=== PATIENT | female | born 1975 | race Caucasian/White ===

== ENCOUNTER 2024-07-21 11:09 | Emergency (ER) | payer MEDICAID, SELFPAY ==
[2024-07-21 11:14] VITALS: BP 133/71; PULSE 89; RESP 16; TEMP 36.4; O2SAT 98; BMI 33.3
--- NOTE | 2024-07-21 11:43 | W.ED.NECK ---
HPI - Neck Pain/Injury General: Chief Complaint: Neck Pain/Injury Stated Complaint: pain in neck Time Seen by Provider: 07/21/24 11:27 History of Present Illness: 48-year-old female presents emergency room complaining of neck pain that began yesterday worse after she sneezed today. She does not have any significant radicular pain she has little numbness in her right hand but states that is chronic and has not sick definitely changed after the sneezing episode yesterday. No difficulty with walking or balance. She does have a mild headache. Related Data Previous Rx's ?Medication ?Instructions ?Recorded diclofenac sodium 75 mg 75 mg PO Q12H PRN pain #20 tabs 07/21/24 tablet,delayed release hydrocodone 5 mg-acetaminophen 325 1 tab PO Q6H PRN pain #20 tabs 07/21/24 mg tablet prednisone 20 mg tablet 20 mg PO TID #15 tabs 07/21/24 tizanidine 4 mg tablet 4 mg PO Q6H PRN muscle spasticity 07/21/24 #20 tabs Allergies Allergy/AdvReac Type Severity Reaction Status Date / Time codeine Allergy ADR-Gastrointestinal Verified 07/21/24 11:22 Upset gabapentin Allergy ADR-Gastrointestinal Verified 07/21/24 11:22 Upset Sulfa (Sulfonamide Allergy ALGY-Anaphy Verified 07/21/24 11:22 Antibiotics) laxis Review of Systems Const: Denies: fever(s) or chills Card: Denies: chest pain Resp: Denies: dyspnea GI: Denies: abdominal pain : Denies: dysuria, urinary frequency or urinary urgency Musc: Reports: neck pain; Denies: back pain Skin/Breast: Denies: rash Physical Exam Const: COMMON NORMALS: no acute distress GENERAL APPEARANCE: cooperative and comfortable ORIENTATION/CONSCIOUSNESS: Yes awake, Yes oriented to person, Yes oriented to place and Yes oriented to time HENMT: COMMON NORMALS: normocephalic, atraumatic and hearing grossly normal bilaterally HEAD & SCALP: normocephalic and atraumatic Resp: COMMON NORMALS: normal respiratory effort, No retractions, No use of accessory muscles and clear to auscultation bilaterally AUSCULTATION: clear to auscultation bilaterally Cardio: COMMON NORMALS: regular rate, regular rhythm and No murmurs present (Cardio) RATE: regular rate RHYTHM: regular rhythm GI: COMMON NORMALS: Soft to palpation and No hepatosplenomegaly present AUSCULTATION: Yes normoactive bowel sounds PALPATION: Yes Soft to palpation, No Tenderness to palpation present (GI), No Guarding due to palpation present (GI) and Yes No hepatosplenomegaly present Extremity: COMMON NORMALS: normal to inspection, capillary refill normal, no clubbing, cyanosis or edema, no calf tenderness and no pedal edema Neuro: SENSORIUM/ORIENTATION: Yes oriented to person, Yes oriented to place and Yes oriented to time OTHER: Sensation the upper extremities are normal. Floor Cashier strength equal bilaterally neurovascularly intact Skin: COMMON NORMALS: no rashes or lesions noted GENERAL SKIN EXAM: no rashes or lesions noted Course Vital Signs: Vital signs: Vital Signs Temperature 97.6 F 07/21/24 11:14 Pulse Rate 75 07/21/24 12:04 Respiratory Rate 16 07/21/24 11:14 Blood Pressure 144/83 07/21/24 12:04 Pulse Oximetry 100 07/21/24 12:04 Oxygen Delivery Me thod Room Air 07/21/24 12:04 MDM - Neck Pain/Injury Medical Decision Making Patient reports sneezing and now having increased radicular arm pain on the right she has had it before functionally she is still intact she also has a Chiari malformation. Initially gave steroids muscle relaxer narcotics she reported mild relief but not full relief we subsequently gave her offered more pain medication she refused. She was wanting to have imaging done discussed with her that his CT would not be very helpful for other Chiari malformation or for evaluating her cervical spine. In the treatment goal to still be the same control of discomfort. She declines any further narcotic discharged home with tizanidine to take in place of methocarbamol use diclofenac and hydrocodone as needed start steroid taper tomorrow will refer to Dr. Olvera for her Chiari malformation and to Dr. Cifuentes for her complaints of neck pain with cervical radiculopathy Medical Records I reviewed the patient's medical records. Lab Data I reviewed the patient's lab results. No radiology studies performed this visit Discharge Plan Discharge Patient Disposition: Home Clinical Impression: Cervical radiculopathy, Chiari malformation Condition: Stable Prescriptions: New tizanidine 4 mg tablet 4 mg PO Q6H PRN (Reason: muscle spasticity) Qty: 20 0RF Rx Instructions: do not exceed 3 doses per 24 hrs hydrocodone-acetaminophen 5-325 mg tablet 1 tab PO Q6H PRN (Reason: pain) Qty: 20 0RF prednisone 20 mg tablet 20 mg PO TID Qty: 15 0RF Rx Instructions: 1 p.o. 3 times daily x3 days, 1 p.o. twice daily x2 days, 1 p.o. daily x2 days diclofenac sodium 75 mg tablet,delayed release (DR/EC) 75 mg PO Q12H PRN (Reason: pain) Qty: 20 0RF Discharge Orders: Discharge ED (Routine); Ordered 07/21/24 Ordered By: Paul Aguero Referrals: Pasquale Cifuentes DO [Physician] - Jacob Olvera MD [Physician] - Discharge Diet: Usual diet Discharge Activity: Increase activity as tolerated Patient Instructions: Opioid Safety, Pain Management Activity Restrictions/Additional Instructions: Thank you for choosing [facility] for your healthcare needs today. It is very important that you follow up as instructed or that you return to the Emergency Department should you have concerns or if your condition changes or worsens in any way. You were seen in the emergency room today for neck pain with some right radicular arm pain. You reported your history of Chiari malformation. In the emergency room we treated your immediate symptoms. Recommend that you follow-up with Dr. Cifuentes's orthopedic spine surgeon to further evaluate your neck for possible advanced imaging and treatment options. Case management make arrangements for this. Also recommend you establish with a neurologist case management will assist you with this as well. Use the medications given today to help control your symptoms until you are seen by the above physicians. Print Language: Macedonian Coding Level of Care Code ED Roll Forming Machine Operator for Candice Meyers
[2024-07-21] MEDS: orphenadrine 30 mg/mL Inj 2 mL 60 MG IM (11:56)
[2024-07-21] MEDS: ketorolac 30 mg/mL INJ IVP (11:57)
[2024-07-21] MEDS: dexamethasone 10 mg/mL INJ IM (12:00)
[2024-07-21] MEDS: morphine 4 mg/mL SDV 1 mL IVP (12:00)
[2024-07-21 12:04] VITALS: BP 144/83; PULSE 75; O2SAT 100
[2024-07-21 14:54] VITALS: BP 133/85; PULSE 73; O2SAT 97
== END 2024-07-21 14:57 | disposition home or self-care (01) ==
PROVIDERS: Emergency Provider Family Medicine
DX: M54.12 Radiculopathy, cervical region (principal); G93.5 Compression of brain
CPT/HCPCS: 36415; 96374; 96375; 99284; J1100; J1885; J2270; J2360

== ENCOUNTER 2024-07-26 07:37 | Emergency (ER) | payer MEDICAID, SELFPAY ==
[2024-07-26 07:40] VITALS: BP 138/73; PULSE 86; RESP 16; TEMP 36.9; O2SAT 96; BMI 33.3
--- NOTE | 2024-07-26 08:05 | W.ED.ABDPA2 ---
Documented by User: Paul Aguero DO 07/27/24 13:17 HPI - Abdominal Pain General: Chief Complaint: Abdominal Pain Stated Complaint: nausea, diarrhea, abd pain Time Seen by Provider: 07/26/24 07:58 History of Present Illness: 48-year-old female who presents emergency room with nausea vomiting diarrhea with abdominal pain. She is significant loss of appetite. Denies any medic easy melena hematemesis cough cramps no dysuria urgency or frequency no hematuria. She relates having had several abdominal surgeries including colostomy large and small bowel resections. Several gynecological surgery she states she has had breast cancer and cervical cancer. She states she has had several C-sections and subsequent hysterectomy. She also reported to us earlier that she had a Chiari malformation. She was seen 5 days ago at that time she had cervical radiculopathy she was referred sent out for a MRI and follow-up with neurosurgery. She had told the PA student today that she was supposed to have a PET scan yesterday but that was canceled because the machine was not working correctly. Associated Symptoms: Reports diarrhea, melena, nausea and vomiting; Denies chills, dysuria, fever(s) and hematemesis Related Data Previous Rx's ?Medication ?Instructions ?Recorded diclofenac sodium 75 mg 75 mg PO Q12H PRN pain #20 tabs 07/21/24 tablet,delayed release hydrocodone 5 mg-acetaminophen 325 1 tab PO Q6H PRN pain #20 tabs 07/21/24 mg tablet prednisone 20 mg tablet 20 mg PO TID #15 tabs 07/21/24 tizanidine 4 mg tablet 4 mg PO Q6H PRN muscle spasticity 07/21/24 #20 tabs hydrocodone 5 mg-acetaminophen 325 1 tab PO Q6H PRN pain #14 tabs 07/26/24 mg tablet Allergies Allergy/AdvReac Type Severity Reaction Status Date / Time codeine Allergy ADR-Gastrointestinal Verified 07/21/24 11:22 Upset gabapentin Allergy ADR-Gastrointestinal Verified 07/21/24 11:22 Upset Sulfa (Sulfonamide Allergy ALGY-Anaphy Verified 07/21/24 11:22 Antibiotics) laxis Review of Systems Const: Denies: fever(s) or chills Card: Denies: chest pain Resp: Denies: dyspnea GI: Reports: abdominal pain, nausea, vomiting, diarrhea and melena; Denies: hematemesis : Denies: dysuria, urinary frequency or urinary urgency Musc: Denies: neck pain or back pain Skin/Breast: Denies: rash PFSH ED PFSH: Medical History Cervical radiculopathy Chiari malformation Physical Exam Const: COMMON NORMALS: no acute distress GENERAL APPEARANCE: cooperative and comfortable ORIENTATION/CONSCIOUSNESS: Yes awake, Yes oriented to person, Yes oriented to place and Yes oriented to time HENMT: COMMON NORMALS: normocephalic, atraumatic and hearing grossly normal bilaterally HEAD & SCALP: normocephalic and atraumatic Resp: COMMON NORMALS: normal respiratory effort, No retractions, No use of accessory muscles and clear to auscultation bilaterally AUSCULTATION: clear to auscultation bilaterally Cardio: COMMON NORMALS: regular rate, regular rhythm and No murmurs present (Cardio) RATE: regular rate RHYTHM: regular rhythm GI: COMMON NORMALS: No hepatosplenomegaly present AUSCULTATION: Yes normoactive bowel sounds PALPATION: Yes Tenderness to palpation present (GI) (Lower abdomen), No Guarding due to palpation present (GI) and Yes No hepatosplenomegaly present Extremity: COMMON NORMALS: normal to inspection, capillary refill normal, no clubbing, cyanosis or edema, no calf tenderness and no pedal edema Neuro: SENSORIUM/ORIENTATION: Yes oriented to person, Yes oriented to place and Yes oriented to time Skin: COMMON NORMALS: no rashes or lesions noted GENERAL SKIN EXAM: no rashes or lesions noted Course Vital Signs: Vital signs: Vital Signs Temperature 98.5 F 07/26/24 07:40 Pulse Rate 76 07/26/24 12:14 Respiratory Rate 16 07/26/24 07:40 Blood Pressure 162/93 07/26/24 12:14 Pulse Oximetry 97 07/26/24 12:14 Oxygen Delivery Me thod Room Air 07/26/24 07:40 MDM - Abdominal Pain Medical Decision Making I was called to another emergency in the hospital. Care signed out to Dr. Schmitt at change of shift. See final notes for diagnosis and disposition.. Patient presents here with abdominal pain her CT showed some inflammation but no signs of obstruction she has no signs of acute infection blood work here is normal we will get her follow-up with surgery likely needs a EGD and colonoscopy. Lab Data 07/26/24 08:02 07/26/24 08:02 Labs/Radiology: Radiology Impressions Abdomen/Pelvis CT 07/26/24 08:13 IMPRESSION: 1. Mild terminal ileum enhancement with wall thickening with a few additional areas of small bowel which are small caliber. There is no obstruction at this time. May represent changes of Crohn's disease. 2. Mild diverticulosis. There is mild wall thickening of the sigmoid but no acute diverticulitis at this time. 3. No renal obstruction. 4. Hepatic steatosis. 5. Prior cholecystectomy. Laboratory Results WBC 8.16 10^3/uL (3.29-11.43) 07/26/24 08:02 RBC 3.98 10^6/uL (3.85-5.65) 07/26/24 08:02 Hgb 12.20 g/dL (11.27-16.99) 07/26/24 08:02 Hct 37.3 % (36-47) 07/26/24 08:02 MCV 93.7 fl (85-98) 07/26/24 08:02 MCH 30.7 pg (27-33) 07/26/24 08:02 MCHC 32.7 g/dL (30-55) 07/26/24 08:02 RDW 13.2 % (12.1-15.1) 07/26/24 08:02 Plt Count 326 10^3/cmm (157-399) 07/26/24 08:02 MPV 10.6 fL (7.4-10.4) H 07/26/24 08:02 Neut % (Auto) 64.1 % 07/26/24 08:02 Lymph % (Auto) 29.4 % 07/26/24 08:02 Smyth % (Auto) 4.8 % 07/26/24 08:02 Eos % (Auto) 0.7 % 07/26/24 08:02 Baso % (Auto) 0.4 % 07/26/24 08:02 Neut # (Auto) 5.23 10^3/uL (1.8-7.7) 07/26/24 08:02 Lymph # (Auto) 2.4 10^3/uL (0.8-4.8) 07/26/24 08:02 Smyth # (Auto) 0.4 10^3/uL (0.2-0.9) 07/26/24 08:02 Eos # (Auto) 0.1 10^3/uL (0.0-0.8) 07/26/24 08:02 Baso # (Auto) 0.0 10^3/uL (0.0-0.1) 07/26/24 08:02 Nucleated RBC % (auto) 0 % 07/26/24 08:02 Nucleated RBCs # 0.0 /100WBC 07/26/24 08:02 Sodium 137 mmol/L (136-145) 07/26/24 08:02 Sodium Cancelled 07/26/24 08:02 Potassium 4.4 mmol/L (3.5-5.1) 07/26/24 08:02 Potassium Cancelled 07/26/24 08:02 Chloride 102 mmol/L (98-107) 07/26/24 08:02 Chloride Cancelled 07/26/24 08:02 Carbon Dioxide 27 mmol/L (22-29) 07/26/24 08:02 Carbon Dioxide Cancelled 07/26/24 08:02 Anion Gap 12.4 (5-19) 07/26/24 08:02 Anion Gap Cancelled 07/26/24 08:02 BUN 18 mg/dL (6-20) 07/26/24 08:02 BUN Cancelled 07/26/24 08:02 Creatinine 0.5 mg/dL (0.5-0.9) 07/26/24 08:02 Creatinine Cancelled 07/26/24 08:02 GFR Calculation 132.8 mL/min (90-130) H 07/26/24 08:02 GFR Calculation Cancelled 07/26/24 08:02 Glucose 102 mg/dL (65-115) 07/26/24 08:02 Glucose Cancelled 07/26/24 08:02 Calculated Osmolality 286 mOsm/kg (285-295) 07/26/24 08:02 Calculated Osmolality Cancelled 07/26/24 08:02 Calcium 9.1 mg/dL (8.5-10.5) 07/26/24 08:02 Calcium Cancelled 07/26/24 08:02 Total Bilirubin 0.2 mg/dL (0.15-1.2) 07/26/24 08:02 AST 20 U/L (0-32) 07/26/24 08:02 ALT 35 U/L (0-33) H 07/26/24 08:02 Alkaline Phosphatase 80 U/L (35-105) 07/26/24 08:02 Total Protein 7.0 g/dL (6.6-8.7) 07/26/24 08:02 Albumin 4.5 g/dL (3.5-5.2) 07/26/24 08:02 Globulin 2.5 g/dL (1.3-4.6) 07/26/24 08:02 Lipase 30 U/L (13-60) 07/26/24 08:02 Urine Color Yellow (Yellow) 07/26/24 10:58 Urine Appearance Clear (CLEAR) 07/26/24 10:58 Urine pH 6.5 (5-7) 07/26/24 10:58 Ur Specific [employer] 1.066 (1.005-1.030) H 07/26/24 10:58 Urine Protein Negative (Negative) 07/26/24 10:58 Urine Glucose (UA) Negative (Normal) 07/26/24 10:58 Urine Ketones Negative (Negative) 07/26/24 10:58 Urine Blood Negative (Negative) 07/26/24 10:58 Urine Nitrate Negative (Negative) 07/26/24 10:58 Urine Bilirubin Negative (Negative) 07/26/24 10:58 Urine Urobilinogen 0.2 mg/dL (Negative) 07/26/24 10:58 Ur Leukocyte Esterase Negative (Negative) 07/26/24 10:58 Amorphous Sediment Not Reportable 07/26/24 10:58 Influenza A (PCR) Negative (Negative) 07/26/24 08:49 Influenza Type B (PCR) Negative (Negative) 07/26/24 08:49 RSV (PCR) Negative (Negative) 07/26/24 08:49 SARS-CoV-2 (PCR) Negative (Negative) 07/26/24 08:49 Discharge Plan Discharge Patient Disposition: Home Clinical Impression: Abdominal pain Condition: Stable Prescriptions: New hydrocodone-acetaminophen 5-325 mg tablet 1 tab PO Q6H PRN (Reason: pain) Qty: 14 0RF No Action tizanidine 4 mg tablet 4 mg PO Q6H PRN (Reason: muscle spasticity) Qty: 20 0RF Rx Instructions: do not exceed 3 doses per 24 hrs hydrocodone-acetaminophen 5-325 mg tablet 1 tab PO Q6H PRN (Reason: pain) Qty: 20 0RF prednisone 20 mg tablet 20 mg PO TID Qty: 15 0RF Rx Instructions: 1 p.o. 3 times daily x3 days, 1 p.o. twice daily x2 days, 1 p.o. daily x2 days diclofenac sodium 75 mg tablet,delayed release (DR/EC) 75 mg PO Q12H PRN (Reason: pain) Qty: 20 0RF Discharge Orders: Discharge ED (Routine); Ordered 07/26/24 Ordered By: Kiara Schmitt Referrals: Kali Austin MD [Physician] - 4-7 days Discharge Diet: Advance as tolerated Discharge Activity: Resume usual activity Patient Instructions: Abdominal Pain (ED), Opioid Safety Print Language: Bots[place]an Coding Level of Care Code ED Day Care Home Mother for Chg Fwd Documented by User: Kiara Schmitt MD 07/26/24 12:20 HPI - Abdominal Pain General: Chief Complaint: Abdominal Pain Stated Complaint: nausea, diarrhea, abd pain Time Seen by Provider: 07/26/24 07:58 Related Data Previous Rx's ?Medication ?Instructions ?Recorded diclofenac sodium 75 mg 75 mg PO Q12H PRN pain #20 tabs 07/21/24 tablet,delayed release hydrocodone 5 mg-acetaminophen 325 1 tab PO Q6H PRN pain #20 tabs 07/21/24 mg tablet prednisone 20 mg tablet 20 mg PO TID #15 tabs 07/21/24 tizanidine 4 mg tablet 4 mg PO Q6H PRN muscle spasticity 07/21/24 #20 tabs hydrocodone 5 mg-acetaminophen 325 1 tab PO Q6H PRN pain #14 tabs 07/26/24 mg tablet Allergies Allergy/AdvReac Type Severity Reaction Status Date / Time codeine Allergy ADR-Gastrointestinal Verified 07/21/24 11:22 Upset gabapentin Allergy ADR-Gastrointestinal Verified 07/21/24 11:22 Upset Sulfa (Sulfonamide Allergy ALGY-Anaphy Verified 07/21/24 11:22 Antibiotics) laxis PFSH ED PFSH: Medical History Cervical radiculopathy Chiari malformation Course Vital Signs: Vital signs: Vital Signs Temperature 98.5 F 07/26/24 07:40 Pulse Rate 76 07/26/24 12:14 Respiratory Rate 16 07/26/24 07:40 Blood Pressure 162/93 07/26/24 12:14 Pulse Oximetry 97 07/26/24 12:14 Oxygen Delivery Me thod Room Air 07/26/24 07:40 MDM - Abdominal Pain Medical Decision Making Patient presents here with abdominal pain her CT showed some inflammation but no signs of obstruction she has no signs of acute infection blood work here is normal we will get her follow-up with surgery likely needs a EGD and colonoscopy. Medical Records I reviewed the patient's medical records. Lab Data I reviewed the patient's lab results. 07/26/24 08:02 07/26/24 08:02 Labs/Radiology: Radiology Impressions Abdomen/Pelvis CT 07/26/24 08:13 IMPRESSION: 1. Mild terminal ileum enhancement with wall thickening with a few additional areas of small bowel which are small caliber. There is no obstruction at this time. May represent changes of Crohn's disease. 2. Mild diverticulosis. There is mild wall thickening of the sigmoid but no acute diverticulitis at this time. 3. No renal obstruction. 4. Hepatic steatosis. 5. Prior cholecystectomy. Laboratory Results WBC 8.16 10^3/uL (3.29-11.43) 07/26/24 08:02 RBC 3.98 10^6/uL (3.85-5.65) 07/26/24 08:02 Hgb 12.20 g/dL (11.27-16.99) 07/26/24 08:02 Hct 37.3 % (36-47) 07/26/24 08:02 MCV 93.7 fl (85-98) 07/26/24 08:02 MCH 30.7 pg (27-33) 07/26/24 08:02 MCHC 32.7 g/dL (30-55) 07/26/24 08:02 RDW 13.2 % (12.1-15.1) 07/26/24 08:02 Plt Count 326 10^3/cmm (157-399) 07/26/24 08:02 MPV 10.6 fL (7.4-10.4) H 07/26/24 08:02 Neut % (Auto) 64.1 % 07/26/24 08:02 Lymph % (Auto) 29.4 % 07/26/24 08:02 Smyth % (Auto) 4.8 % 07/26/24 08:02 Eos % (Auto) 0.7 % 07/26/24 08:02 Baso % (Auto) 0.4 % 07/26/24 08:02 Neut # (Auto) 5.23 10^3/uL (1.8-7.7) 07/26/24 08:02 Lymph # (Auto) 2.4 10^3/uL (0.8-4.8) 07/26/24 08:02 Smyth # (Auto) 0.4 10^3/uL (0.2-0.9) 07/26/24 08:02 Eos # (Auto) 0.1 10^3/uL (0.0-0.8) 07/26/24 08:02 Baso # (Auto) 0.0 10^3/uL (0.0-0.1) 07/26/24 08:02 Nucleated RBC % (auto) 0 % 07/26/24 08:02 Nucleated RBCs # 0.0 /100WBC 07/26/24 08:02 Sodium 137 mmol/L (136-145) 07/26/24 08:02 Sodium Cancelled 07/26/24 08:02 Potassium 4.4 mmol/L (3.5-5.1) 07/26/24 08:02 Potassium Cancelled 07/26/24 08:02 Chloride 102 mmol/L (98-107) 07/26/24 08:02 Chloride Cancelled 07/26/24 08:02 Carbon Dioxide 27 mmol/L (22-29) 07/26/24 08:02 Carbon Dioxide Cancelled 07/26/24 08:02 Anion Gap 12.4 (5-19) 07/26/24 08:02 Anion Gap Cancelled 07/26/24 08:02 BUN 18 mg/dL (6-20) 07/26/24 08:02 BUN Cancelled 07/26/24 08:02 Creatinine 0.5 mg/dL (0.5-0.9) 07/26/24 08:02 Creatinine Cancelled 07/26/24 08:02 GFR Calculation 132.8 mL/min (90-130) H 07/26/24 08:02 GFR Calculation Cancelled 07/26/24 08:02 Glucose 102 mg/dL (65-115) 07/26/24 08:02 Glucose Cancelled 07/26/24 08:02 Calculated Osmolality 286 mOsm/kg (285-295) 07/26/24 08:02 Calculated Osmolality Cancelled 07/26/24 08:02 Calcium 9.1 mg/dL (8.5-10.5) 07/26/24 08:02 Calcium Cancelled 07/26/24 08:02 Total Bilirubin 0.2 mg/dL (0.15-1.2) 07/26/24 08:02 AST 20 U/L (0-32) 07/26/24 08:02 ALT 35 U/L (0-33) H 07/26/24 08:02 Alkaline Phosphatase 80 U/L (35-105) 07/26/24 08:02 Total Protein 7.0 g/dL (6.6-8.7) 07/26/24 08:02 Albumin 4.5 g/dL (3.5-5.2) 07/26/24 08:02 Globulin 2.5 g/dL (1.3-4.6) 07/26/24 08:02 Lipase 30 U/L (13-60) 07/26/24 08:02 Urine Color Yellow (Yellow) 07/26/24 10:58 Urine Appearance Clear (CLEAR) 07/26/24 10:58 Urine pH 6.5 (5-7) 07/26/24 10:58 Ur Specific [employer] 1.066 (1.005-1.030) H 07/26/24 10:58 Urine Protein Negative (Negative) 07/26/24 10:58 Urine Glucose (UA) Negative (Normal) 07/26/24 10:58 Urine Ketones Negative (Negative) 07/26/24 10:58 Urine Blood Negative (Negative) 07/26/24 10:58 Urine Nitrate Negative (Negative) 07/26/24 10:58 Urine Bilirubin Negative (Negative) 07/26/24 10:58 Urine Urobilinogen 0.2 mg/dL (Negative) 07/26/24 10:58 Ur Leukocyte Esterase Negative (Negative) 07/26/24 10:58 Amorphous Sediment Not Reportable 07/26/24 10:58 Influenza A (PCR) Negative (Negative) 07/26/24 08:49 Influenza Type B (PCR) Negative (Negative) 07/26/24 08:49 RSV (PCR) Negative (Negative) 07/26/24 08:49 SARS-CoV-2 (PCR) Negative (Negative) 07/26/24 08:49 All radiology interpretation(s) finalized by discharge Discharge Plan Discharge Patient Disposition: Home Clinical Impression: Abdominal pain Condition: Stable Prescriptions: New hydrocodone-acetaminophen 5-325 mg tablet 1 tab PO Q6H PRN (Reason: pain) Qty: 14 0RF No Action tizanidine 4 mg tablet 4 mg PO Q6H PRN (Reason: muscle spasticity) Qty: 20 0RF Rx Instructions: do not exceed 3 doses per 24 hrs hydrocodone-acetaminophen 5-325 mg tablet 1 tab PO Q6H PRN (Reason: pain) Qty: 20 0RF prednisone 20 mg tablet 20 mg PO TID Qty: 15 0RF Rx Instructions: 1 p.o. 3 times daily x3 days, 1 p.o. twice daily x2 days, 1 p.o. daily x2 days diclofenac sodium 75 mg tablet,delayed release (DR/EC) 75 mg PO Q12H PRN (Reason: pain) Qty: 20 0RF Discharge Orders: Discharge ED (Routine); Ordered 07/26/24 Ordered By: Kiara Schmitt Referrals: Kali Austin MD [Physician] - 4-7 days Discharge Diet: Advance as tolerated Discharge Activity: Resume usual activity Patient Instructions: Abdominal Pain (ED), Opioid Safety Print Language: [place]an Coding Level of Care Code ED Day Care Home Mother for Candice Meyers
[2024-07-26 08:11] LABS: Basophils % 0.4 %; Eosinophils # 0.1 10^3/uL (0.0-0.8); Eosinophils % 0.7 %; Hematocrit 37.3 % (36-47); Lymphocytes # 2.4 10^3/uL (0.8-4.8); Lymphocytes % 29.4 %; Mean Corpuscular HGB Conc 32.7 g/dL (30-55); Mean Corpuscular Hemoglobin 30.7 pg (27-33); Mean Corpuscular Volume 93.7 fl (85-98); Mean Platelet Volume 10.6 fL (7.4-10.4); Monocytes # 0.4 10^3/uL (0.2-0.9); Monocytes % 4.8 %; Neutrophils # 5.23 10^3/uL (1.8-7.7); Neutrophils % 64.1 %; Nucleated Red Blood Cells % 0 %; Platelet Count 326 10^3/cmm (157-399); Red Blood Count 3.98 10^6/uL (3.85-5.65); Red Cell Distribution Width 13.2 % (12.1-15.1); White Blood Count 8.16 10^3/uL (3.29-11.43)
--- NOTE | 2024-07-26 08:13 | CT_ITS ---
WS: [id number] CT ABDOMEN AND PELVIS WITH CONTRAST HISTORY: abd pain, nausea and vomiting. History of cervical and breast cancer as per the patient. TECHNIQUE: Imaging performed of the abdomen and pelvis with IV contrast. Single phase imaging of the abdomen. Coronal and sagittal reformats are submitted. All CT scans at [facility] use at least one of these dose optimization techniques: automated exposure control; mA and/or kV adjustment per patient size (includes targeted exams where dose is matched to clinical indication); or iterative reconstruction. IV CONTRAST: Omnipaque 350; 100 mL IV. Oral contrast: No DLP: 709.81 mGy.cm COMPARISON: None available. Lower thorax: Lung bases are clear. Heart is normal size. Small hiatal hernia. Liver/biliary system: Mild hepatomegaly. Heterogeneity throughout the liver but no discrete mass. Portal vein is normal. Gallbladder: Status post cholecystectomy. Pancreas: Normal size pancreas and pancreatic duct. No adjacent inflammation. Spleen: Normal size spleen. No mass or infarct. Adrenal glands: Normal. Right kidney: Normal. Left kidney: Normal. Aorta: Mild atherosclerosis with no aneurysm. Lymphadenopathy: None. Free fluid: None. GI tract: No GI tract obstruction. Nondistended stomach. No small bowel obstruction. Normal appendix. There is mild enhancement of wall thickening at the terminal ileum but no obstruction. There are additional loops of small bowel in the LEFT lower quadrant which are collapsed. There are a few scattered diverticula in the descending colon without acute diverticulitis. Abdominal wall: Unremarkable abdominal wall. No hernia. Pelvis: Status post hysterectomy. No adnexal mass or free fluid. Bones: Unremarkable. CT/CT abdomen pelvis w con* [id number] IMPRESSION: 1. Mild terminal ileum enhancement with wall thickening with a few additional areas of small bowel which are small caliber. There is no obstruction at this t [place]. May represent changes of Crohn's disease. 2. Mild diverticulosis. There is mild wall thickening of the sigmoid but no ac bibi diverticulitis at this time. 3. No renal obstruction. 4. Hepatic steatosis. 5. Prior cholecystectomy.
[2024-07-26 08:34] LABS: Anion Gap 12.4 (5-19); Blood Urea Nitrogen 18 mg/dL (6-20); Calcium 9.1 mg/dL (8.5-10.5); Carbon Dioxide 27 mmol/L (22-29); Chloride 102 mmol/L (98-107); Creatinine Clr Calc Pharmacy 166.1099; Glomerular Filtration Rate 132.8 mL/min (90-130); Glucose 102 mg/dL (65-115); Osmolality Calculated 286 mOsm/kg (285-295); Potassium 4.4 mmol/L (3.5-5.1); Sodium 137 mmol/L (136-145)
[2024-07-26 08:41] LABS: Alanine Aminotransferase 35 U/L (0-33); Albumin Level 4.5 g/dL (3.5-5.2); Alkaline Phosphatase 80 U/L (35-105); Aspartate Amino Transferase 20 U/L (0-32); Globulin 2.5 g/dL (1.3-4.6); Lipase 30 U/L (13-60); Total Bilirubin 0.2 mg/dL (0.15-1.2)
[2024-07-26] MEDS: iohexol 350 mg/mL 500 mL Btl (per mL) IV (08:55)
[2024-07-26] MEDS: ondansetron 2 mg/ML SDV 2 mL 4 MG IVP (09:20)
[2024-07-26 09:45] LABS: Influenza A NEGATIVE (Negative); Influenza B NEGATIVE (Negative); Respiratory Syncytial Virus Ce NEGATIVE (Negative); SARS-CoV-2 PCR NEGATIVE (Negative)
[2024-07-26 11:11] LABS: Add Urine Microscopic? NO
[2024-07-26 11:12] LABS: Bilirubin Urine Negative (Negative); Blood Urine Negative (Negative); Glucose Urine UA Negative (Normal); Ketones Urine Negative (Negative); Leukocyte Esterase Urine Negative (Negative); Nitrate Urine Negative (Negative); Protein Urine Negative (Negative); Urine Appearance Clear (CLEAR); Urine Color Yellow (Yellow); Urobilinogen Urine 0.2 mg/dL (Negative); pH Urine 6.5 (5-7)
--- NOTE | 2024-07-26 11:22 | PC.NURSE ---
this nurse took pt report at this time from May SMITH.
[2024-07-26 11:33] LABS: Specific Gravity, Urine 1.066 (1.005-1.030)
[2024-07-26 11:34] LABS: Charge for UA Resulting for Rev
--- NOTE | 2024-07-26 12:11 | PC.NURSE ---
PATIENT UPSET WITH DISCHARGE INSTRUCTIONS. PATIENT STATES SHE WAS UNHAPPY DUE TO 1ST PROVIDER TELLING HER SHE HAD ALL OF THESE THINGS WRONG WITH ME AND THEN THE SECOND DOC JUST COMES IN AND SAYS I'M DISCHARGED. PATIENT STATES SHE WAS TOLD THAT SHE DOESN'T FOLLOW HER GLUTEN FREE DIET. NURSE EXPLAINED THAT PATIENT HAS STOMACH PAINS DUE TO NOT FOLLOWING PROPER DIET AND THAT SHE SHOULD CONTINUE TO EAT CLEAR LIQUID FOODS FOR THE NEXT 24-48 HOURS AND THEN START ON A GLUTEN FREE DIET. NURSE APOLOGIZES AND STATES NOT MUCH IS DONE FOR STOMACH PAINS WHEN IT IS RELATED TO POOR DIET. PATIENT WAS ALSO SENT HOME WITH PAIN MEDICATIONS. PATIENT IS THANKFUL FOR FURTHER NURSE EXPLANATION. PATIENT STATES DR BARBOSA IS RODOLFOE REFERRING TO DR ERVIN. PATIENT SIGNED DISCHARGED PAPERWORK AND AMBULATED TO EXIT IN STABLE CONDITION.
[2024-07-26 12:14] VITALS: BP 162/93; PULSE 76; O2SAT 97
--- NOTE | 2024-07-26 12:21 | DCPLANNER ---
messaged gen surg for abd pain
== END 2024-07-26 12:15 | disposition home or self-care (01) ==
PROVIDERS: Family Medicine; Emergency Provider Emergency Medicine
DX: R10.9 Unspecified abdominal pain (principal); Z11.52 Encounter for screening for COVID-19
CPT/HCPCS: 36415; 74177; 76705; 80053; 81003; 83690; 85025; 87637; 96374; 99285; J2405

== ENCOUNTER 2024-09-16 21:04 | Emergency (ER) | payer MEDICAID, SELFPAY ==
[2024-09-16 21:21] VITALS: BP 139/82; PULSE 97; RESP 14; TEMP 36.7; O2SAT 98
[2024-09-16 21:30] VITALS: BP 126/91; PULSE 91; PULSE 95; O2SAT 95; O2SAT 98
[2024-09-16 22:00] VITALS: BP 134/75; PULSE 88; O2SAT 96
--- NOTE | 2024-09-16 22:16 | XRR_ITS ---
PROCEDURE INFORMATION: Exam: XR Chest Exam date and time: 09/16/2024 11:08 PM Age: 48 years old Clinical indication: Shortness of breath; SOB; Persistent cough; Current lung/throat CA TECHNIQUE: Imaging protocol: Radiologic exam of the chest. Views: 1 view. COMPARISON: CT abdomen pelvis w con* [id number] 07/26/2024 8:51 AM FINDINGS: Lungs: Unremarkable. No consolidation. Pleural spaces: Unremarkable. No pleural effusion. No pneumothorax. Heart/Mediastinum: Unremarkable. No cardiomegaly. Bones/joints: Unremarkable. XR/XR chest 1V portable [id number] IMPRESSION: No acute findings.
[2024-09-16 22:30] VITALS: BP 150/92; PULSE 84; O2SAT 100
[2024-09-16 23:00] VITALS: BP 119/78; PULSE 82; O2SAT 98
[2024-09-16 23:04] LABS: Basophils % 0.4 %; Eosinophils # 0.1 10^3/uL (0.0-0.8); Eosinophils % 0.9 %; Hematocrit 37.9 % (36-47); Lymphocytes # 1.5 10^3/uL (0.8-4.8); Lymphocytes % 18.6 %; Mean Corpuscular HGB Conc 32.5 g/dL (30-55); Mean Corpuscular Hemoglobin 31.1 pg (27-33); Mean Corpuscular Volume 95.9 fl (85-98); Mean Platelet Volume 10.8 fL (7.4-10.4); Monocytes # 0.6 10^3/uL (0.2-0.9); Monocytes % 6.8 %; Neutrophils # 5.86 10^3/uL (1.8-7.7); Neutrophils % 72.9 %; Nucleated Red Blood Cells % 0 %; Platelet Count 288 10^3/cmm (157-399); Red Blood Count 3.95 10^6/uL (3.85-5.65); Red Cell Distribution Width 12.6 % (12.1-15.1); White Blood Count 8.03 10^3/uL (3.29-11.43)
[2024-09-16 23:28] LABS: D Dimer <= 0.27 ug/mLFEU (0-0.59)
[2024-09-16 23:32] LABS: Influenza A NEGATIVE (Negative); Influenza B NEGATIVE (Negative); Respiratory Syncytial Virus Ce NEGATIVE (Negative); SARS-CoV-2 PCR NEGATIVE (Negative)
[2024-09-16 23:39] LABS: Alanine Aminotransferase 29 U/L (0-33); Albumin Level 4.6 g/dL (3.5-5.2); Alkaline Phosphatase 94 U/L (35-105); Anion Gap 14.1 (5-19); Aspartate Amino Transferase 19 U/L (0-32); Blood Urea Nitrogen 20 mg/dL (6-20); Calcium 9.4 mg/dL (8.5-10.5); Carbon Dioxide 28 mmol/L (22-29); Chloride 102 mmol/L (98-107); Creatinine Clr Calc Pharmacy 107.8634; Globulin 2.7 g/dL (1.3-4.6); Glomerular Filtration Rate 90.1 mL/min (90-130); Glucose 125 mg/dL (65-115); NT Pro B Type Natriuretic Pept < 36 pg/mL (0-125); Osmolality Calculated 294 mOsm/kg (285-295); Potassium 4.1 mmol/L (3.5-5.1); Sodium 140 mmol/L (136-145); Total Bilirubin 0.2 mg/dL (0.15-1.2); Total Protein 7.3 g/dL (6.6-8.7)
--- NOTE | 2024-09-17 00:01 | ED_ITS ---
HPI - SOB/Dyspnea 2 General: Chief Complaint: Shortness of Breath/Dyspnea Stated Complaint: weakness nonstop cough Time Seen by Provider: 09/16/24 21:32 History of Present Illness: HPI Narrative: 48-year-old female who says that she has been recently diagnosed with throat and lung cancer. She shows me a PET scan results showing inflammation and/or infection at the base of her tongue as well as a spiculated mass or upper lobe of the lung. She states that she has had an ongoing nagging cough for several days. She has had a tickle in the back of her throat causing her to cough constantly. She is lost her voice today because the cough has been so great. She is coughed up clots twice in the last week, the last time being today. Clots were small amount. She is not running fever. Related Data Previous Rx's ?Medication ?Instructions ?Recorded diclofenac sodium 75 mg 75 mg PO Q12H PRN pain #20 t abs 07/21/24 tablet,delayed release hydrocodone 5 mg-acetaminophen 325 1 tab PO Q6H PRN pa in #20 tabs 07/21/24 mg tablet prednisone 20 mg tablet 20 mg PO TID #15 tabs tizanidine 4 mg tablet 4 mg PO Q6H PRN muscle spast icity 07/21/24 #20 tabs hydrocodone 5 mg-acetaminophen 325 1 tab PO Q6H PRN pa in #14 tabs 07/26/24 mg tablet Allergies Allergy/AdvReac Type Severity Reaction Status Date / Time codeine Allergy ADR-Gastrointestinal Verified 09/16/24 21:27 Upset gabapentin Allergy ADR-Gastrointestinal Verified 09/16/24 21:27 Upset Sulfa (Sulfonamide Allergy ALGY-Anaphy Verified 09/16/24 21:27 Antibiotics) laxis PFSH ED 2 PFSH: Medical History Cervical radiculopathy Chiari malformation Physical Exam 2 Const: COMMON NORMALS: no acute distress GENERAL APPEARANCE: cooperative and anxious; not ill appearing and not frail appearing HENMT: COMMON NORMALS: normocephalic, atraumatic and Normal external nose present HEAD & SCALP: normocephalic and atraumatic FACE & SINUS: normal facial exam and face symmetric NOSE: Normal external nose present Eye: COMMON NORMALS: Equal, round and reactive pupils present and EOMs intact bilaterally PUPIL: Yes Equal, round and reactive pupils present Neck/C-Spine: GENERAL: Yes trachea midline Chest: CHEST: Yes Symmetrical chest wall rise Resp: COMMON NORMALS: normal respiratory effort, No retractions, No use of accessory muscles and clear to auscultation bilaterally AUSCULTATION: clear to auscultation bilaterally Cardio: COMMON NORMALS: regular rate and regular rhythm RATE: regular rate RHYTHM: regular rhythm GI: COMMON NORMALS: Normal to inspection, nondistended, normoactive bowel sounds present Extremity: COMMON NORMALS: no pedal edema Neuro: JAYDA COMA SCALE: document GCS findings Jayda coma scale eye opening: Spontaneous [place] coma scale verbal response: Orientated [place] coma scale motor response: Obey commands Jayda coma scale total score: 15 S ENSORY EXAM: Yes extremities (intact) Psych: COMMON NORMALS: speech normal SPEECH: Yes normal speech Skin: COMMON NORMALS: no rashes or lesions noted GENERAL SKIN EXAM: no rashes or lesions noted Course 2 Vital Signs: Vital signs: Vital Signs Temperature 98.1 F 09/16/24 21:21 Pulse Rate 82 09/17/24 02:36 Respiratory Rate 14 09/16/24 21:21 Blood Pressure 124/81 09/17/24 02:36 Pulse Oximetry 96 09/17/24 02:36 Oxygen Delivery Me thod Room Air 09/16/24 23:00 MDM - SOB/Dyspnea Medical Decision Making Chest x-ray is nonacute. Blood work is essentially not remarkable. Patient believe the cough is coming from the tickle in the back of her throat. She was given viscous lidocaine with oral Benadryl liquid here which seemed to help transiently. She is also given IV dexamethasone which did help here. She will be discharged on Magic mouthwash to swish and swallow for soothing of the throat. She will call her doctor later today for follow-up appointment. Lab Data 09/16/24 22:40 09/16/24 22:40 Labs/Radiology: Radiology Impressions Chest X-Ray 09/16/24 22:16 IMPRESSION: No acute findings. Laboratory Results WBC 8.03 10^3/uL (3.29-11.43) 09/16/24 22:40 RBC 3.95 10^6/uL (3.85-5.65) 09/16/24 22:40 Hgb 12.30 g/dL (11.27-16.99) 09/16/24 22:40 Hct 37.9 % (36-47) 09/16/24 22:40 MCV 95.9 fl (85-98) 09/16/24 22:40 MCH 31.1 pg (27-33) 09/16/24 22: MCHC 32.5 g/dL (30-55) 09/16/24 22:40 RDW 12.6 % (12.1-15.1) 09/16/24 22:40 Plt Count 288 10^3/cmm (157-399) 09/16/24 22:40 MPV 10.8 fL (7.4-10.4) H 09/16/24 22:40 Neut % (Auto) 72.9 % 09/16/24: Lymph % (Auto) 18.6 % 09/16/24 22:40 [place] % (Auto) 6.8 % 09/16/24:40 Eos % (Auto) 0.9 % 09/16/24 22:40 Baso % (Auto) 0.4 % 09/16/24:40 Neut # (Auto) 5.86 10^3/uL (1.8-7.7) 09/16/24: Lymph # (Auto) 1.5 10^3/uL (0.8-4.8) 09/16/24 22:40 [place] # (Auto) 0.6 10^3/uL (0.2-0.9) 09/16/24: Eos # (Auto) 0.1 10^3/uL (0.0-0.8) 09/16/24: Baso # (Auto) 0.0 10^3/uL (0.0-0.1) 09/16/24: Nucleated RBC % (auto) 0 % 09/16/24: Nucleated RBCs # 0.0 /100WBC 09/16/24 22:40 D-Dimer <= 0.27 ug/mLFEU (0-0.59) 09/16/24 22:40 Sodium 140 mmol/L (136-145) 09/16/24: Potassium 4.1 mmol/L (3.5-5.1) 09/16/24 22:40 Chloride 102 mmol/L (98-107) 09/16/24 22:40 Carbon Dioxide 28 mmol/L (22-29) 09/16/24 22:40 Anion Gap 14.1 (5-19) 09/16/24 22:40 BUN 20 mg/dL (6-20) 09/16/24 22:40 Creatinine 0.7 mg/dL (0.5-0.9) 09/16/24 22:40 GFR Calculation 90.1 mL/min (90-130) 09/16/24 22:40 Glucose 125 mg/dL (65-115) H 09/16/24 22:40 Calculated Osmolality 294 mOsm/kg (285-295) 09/16/24 22:40 Lactic Acid 1.0 mmol/L (0.5-2.2) 09/16/24 22:40 Calcium 9.4 mg/dL (8.5-10.5) 09/16/24 22:40 Total Bilirubin 0.2 mg/dL (0.15-1.2) 09/16/24 22:40 AST 19 U/L (0-32) 09/16/24 22:40 ALT 29 U/L (0-33) 09/16/24 22:40 Alkaline Phosphatase 94 U/L (35-105) 09/16/24 22:40 NT-Pro-B Natriuret Pep < 36 pg/mL (0-125) 09/16/24 22:40 Total Protein 7.3 g/dL (6.6-8.7) 09/16/24 22:40 Albumin 4.6 g/dL (3.5-5.2) 09/16/24 22:40 Globulin 2.7 g/dL (1.3-4.6) 09/16/24 22:40 Influenza A (PCR) Negative (Negative) 09/16/24 22:49 Influenza Type B (PCR) Negative (Negative) 09/16/24 22:49 RSV (PCR) Negative (Negative) 09/16/24 22:49 SARS-CoV-2 (PCR) Negative (Negative) 09/16/24 22:49 All radiology interpretation(s) finalized by discharge Discharge Plan Discharge Patient Disposition: Home Clinical Impression: Acute tracheitis with laryngitis Condition: Stable Prescriptions: No Action hydrocodone-acetaminophen 5-325 mg tablet 1 tab PO Q6H PRN (Reason: pain) Qty: 14 0RF tizanidine 4 mg tablet 4 mg PO Q6H PRN (Reason: muscle spasticity) Qty: 20 0RF Rx Instructions: do not exceed 3 doses per 24 hrs hydrocodone-acetaminophen 5-325 mg tablet 1 tab PO Q6H PRN (Reason: pain) Qty: 20 0RF prednisone 20 mg tablet 20 mg PO TID Qty: 15 0RF Rx Instructions: 1 p.o. 3 times daily x3 days, 1 p.o. twice daily x2 days, 1 p.o. daily x2 days diclofenac sodium 75 mg tablet,delayed release (DR/EC) 75 mg PO Q12H PRN (Reason: pain) Qty: 20 0RF Discharge Orders: Discharge ED (Routine); Ordered 09/17/24 Ordered By: Fredrick Servin Patient Instructions: Acute Laryngitis - Adult, Opioid Safety, Pain Management Activity Restrictions/Additional Instructions: Fill the prescription for Magic mouthwash at your pharmacy. Take as directed. It can help with throat and airway irritation related to your problem. Call your doctor tomorrow for follow-up appointment. Return for any problems. Print Language: Amharic Coding Level of Care Code ED Record Center Coordinator for Candice Meyers
[2024-09-17] MEDS: diphenhydrAMINE 12.5 mg/5 mL UDC 10 mL 25 MG PO ×2 (00:40→01:51)
[2024-09-17] MEDS: lidocaine 2% viscous 15 mL UDC 5 ML MUCOUS MEM (00:40)
[2024-09-17] MEDS: dexamethasone 10 mg/mL INJ IVP (00:41)
[2024-09-17] MEDS: HYDROcodone-APAP 7.5-325 mg/15 mL UDC 10 ML PO (01:51)
[2024-09-17] MEDS: lidocaine 2% viscous 15 mL UDC 5 ML TOPICAL (01:51)
[2024-09-17 02:36] VITALS: BP 124/81; PULSE 82; O2SAT 96
--- NOTE | 2024-09-17 12:05 | DCPLANNER ---
patient called and asked about magic mouthwash prescription. I asked Dr. Aguero, it's something that has to be handwritten and Sirisha noticed it by the charge seat. I let her know we had it and why it was hand written, not sent electronic but she said 'that's fucking stupid' and hung up the phone
== END 2024-09-17 01:50 | disposition home or self-care (01) ==
PROVIDERS: Emergency Provider Emergency Medicine
DX: J04.2 Acute laryngotracheitis (principal); Z11.52 Encounter for screening for COVID-19
CPT/HCPCS: 36415; 71045; 80053; 83605; 83880; 85025; 85378; 87637; 96374; 99284; J1100; J9999

== ENCOUNTER 2024-10-31 11:31 | Outpatient (CLI) | payer MEDICAID, SELFPAY ==
--- NOTE | 2024-10-31 11:38 | MR_ITS ---
WS: [id number] MRI HEAD WITHOUT CONTRAST TECHNIQUE: Sagittal T1, T2 axial, T2 axial FLAIR, axial and coronal T1 images, axial susceptibility weighted imaging, axial diffusion weighted images, and coronal T2 images were obtained. CLINICAL INFORMATION: ARNOLD-CHIARI MALFORMATION COMPARISON: None. FINDINGS: No evidence of restricted diffusion to suggest acute ischemia. Chiari I malformation with cerebellar tonsils approximately 4.4 mm below the foramen magnum. No hydrocephalus. Normal fourth ventricle. No suspicious intracranial signal abnormalities. Normal okeefe-white differentiation. Normal vascular flow voids at the skull base. No extra-axial fluid collections. No evidence of mass or mass effect. Paranasal sinuses and mastoid air cells are well aerated. Normal posterior nasopharynx. Normal optic chiasm and pituitary infundibulum. MR/MR head wo con* [id number] IMPRESSION: 1. Chiari I malformation with cerebellar tonsils approximately 4.4 mm below th e foramen magnum. 2. No hydrocephalus. 3. No suspicious intracranial signal abnormalities. 4. No other acute findings.
--- NOTE | 2024-10-31 11:47 | MR_ITS ---
WS: [id number] MRI CERVICAL SPINE NONCONTRAST TECHNIQUE: Sagittal T1, T2 and STIR imaging. Axial T2, gradient, and fiesta imaging. CLINICAL INFORMATION: neck pain COMPARISON: None. FINDINGS: Straightening of the normal cervical lordosis. Disc osteophyte protrusions C4-C5 and C5-C6 with mild central canal stenosis worse at C5-6. C2-C3: Normal. C3-C4: Mild disc bulging. Moderate RIGHT facet arthropathy. Mild to moderate RIGHT foraminal narrowing. C4-C5: Disc osteophyte complex with endplate ridging. Moderate facet arthropathy. Mild bilateral bony foraminal narrowing. C5-C6: Disc osteophyte protrusion with slight indentation cervical cord. Mild central canal stenosis. Moderate to severe bilateral bony foraminal narrowing. Uncovertebral joint hypertrophy. C6-C7: Spinal canal and foramen are patent. C7-T1: Spinal canal and foramen are patent. Visualized brain stem structures: Normal. Prevertebral soft tissues: Normal. Chiari malformation partially visualized. MR/MR cervical spin wo con* [id number] IMPRESSION: 1. Straightening of the normal cervical lordosis. 2. Mild central canal stenosis C4-C5 and C5-C6 with disc osteophyte complexes worse at C5-C6 with slight indentation cervical cord. 3. Moderate to severe bilateral C5-C6 bony foraminal narrowing. 4. No syrinx in the cervical cord. 5. Moderate RIGHT C3-4 facet arthropathy.
== END 2024-10-31 11:32 | disposition home or self-care (01) ==
LOC: RAD 11:33
PROVIDERS: PCP Family Medicine; Visit Provider Registered Nurse Critical Care Medicine
DX: Q07.00 Arnold-Chiari syndrome without spina bifida or hydrocephalus (principal); M48.02 Spinal stenosis, cervical region; M47.812 Spondylosis without myelopathy or radiculopathy, cervical region; M25.78 Osteophyte, vertebrae
CPT/HCPCS: 70551; 72141

== ENCOUNTER 2024-11-07 07:47 | Day surgery (SDC) | payer MEDICAID, SELFPAY ==
[2024-11-07] VITALS (16 sets, daily range): BP systolic 104–134; BP diastolic 61–82; PULSE 68–85; RESP 10–20; TEMP 36.2–36.7; O2SAT 90–99; BMI 30.2
--- NOTE | 2024-11-07 08:18 | W.ED.ABDPA2 ---
HPI - Abdominal Pain General: Chief Complaint: Abdominal Pain Stated Complaint: nausea,bloating, no bowel movement in 3 days, weak Time Seen by Provider: 11/07/24 08:09 History of Present Illness: Patient is a 49-year-old female who presents to the ED today with chief complaint of right lower quadrant abdominal pain. She states the pain started 2 days ago and is accompanied by nausea vomiting, and decreased appetite. Patient's PCP prescribed her Zofran, and she states this did not help her pain. She has not had a bowel movement in 2 days. She also states her urine is cloudy, she is having increased frequency, and feeling like she is not fully emptying her bladder. She denies fever, hematuria, dysuria, increased burping, hematemesis, and is still passing gas. She has a history of celiac's disease and admits to not adhering to a gluten-free diet currently. Previous abdominal surgery includes C-sections and cholecystectomy. Last meal prior to midnight last night Associated Symptoms: Reports constipation, nausea and vomiting; Denies bloating, chills, coffee ground emesis, diarrhea, dysuria, fever(s), hematochezia, hematemesis and melena Related Data Home Medications ?Medication ?Instructions ?Recorded ?Confirmed buspirone 15 mg tablet 15 mg PO TID 11/07/24 11/07/24 duloxetine 30 mg capsule,delayed See Rx Instructions .Route .COMPLEX 11/07/24 11/07/24 release methocarbamol 500 mg tablet 500 mg PO DAILY 11/07/24 11/07/24 omeprazole 40 mg capsule,delayed 40 mg PO DAILY 11/07/24 11/07/24 release ondansetron 4 mg disintegrating 4 mg PO Q8H PRN Nausea 11/07/24 11/07/24 tablet sumatriptan succinate 25 mg tablet 25 mg PO Q2H PRN Migraine Headache 11/07/24 11/07/24 topiramate 50 mg tablet 50 mg PO BID 11/07/24 11/07/24 Previous Rx's ?Medication ?Instructions ?Recorded tizanidine 4 mg tablet 4 mg PO Q6H PRN muscle spasticity 07/21/24 #20 tabs hydrocodone 5 mg-acetaminophen 325 1 tab PO Q6H PRN pain #14 tabs 07/26/24 mg tablet Allergies Allergy/AdvReac Type Severity Reaction Status Date / Time codeine Allergy ADR-Gastrointestinal Verified 09/16/24 21:27 Upset gabapentin Allergy ADR-Gastrointestinal Verified 09/16/24 21:27 Upset Sulfa (Sulfonamide Allergy ALGY-Anaphy Verified 09/16/24 21:27 Antibiotics) laxis Review of Systems Const: Reports: change in appetite and fatigue; Denies: fever(s), chills or body aches ENMT: Denies: throat pain, ear or mastoid pain, nasal discharge or nasal congestion Card: Denies: chest pain, edema, dyspnea on exertion or orthopnea Resp: Denies: dyspnea, productive cough or non-productive cough GI: Reports: abdominal pain (Right lower quadrant), nausea, vomiting and constipation; Denies: hematemesis, coffee ground emesis, diarrhea, bloating, hematochezia or melena : Reports: difficulty voiding, urinary frequency and urinary hesitancy; Denies: flank pain, dysuria or urinary urgency Skin/Breast: Denies: rash or pruritus PFSH ED PFSH: Medical History (Updated 11/07/24 @ 10:46 by Paul Aguero DO) Cervical radiculopathy Chiari malformation Surgical History (Updated 11/07/24 @ 10:46 by Paul Aguero DO) Hx of cholecystectomy Physical Exam Const: COMMON NORMALS: no acute distress and alert GENERAL APPEARANCE: cooperative and comfortable ORIENTATION/CONSCIOUSNESS: Yes awake, Yes oriented to person, Yes oriented to place and Yes oriented to time HENMT: COMMON NORMALS: normocephalic, atraumatic and hearing grossly normal bilaterally HEAD & SCALP: normocephalic and atraumatic Resp: COMMON NORMALS: normal respiratory effort, No retractions, No use of accessory muscles and clear to auscultation bilaterally AUSCULTATION: clear to auscultation bilaterally Cardio: COMMON NORMALS: regular rate, regular rhythm and No murmurs present (Cardio) RATE: regular rate RHYTHM: regular rhythm GI: COMMON NORMALS: Soft to palpation, No hepatosplenomegaly present and no masses INSPECTION: Yes normal to inspection AUSCULTATION: Yes normoactive bowel sounds PALPATION: Yes Soft to palpation, Yes Tenderness to palpation present (GI) Details: LLQ and RLQ, No Guarding due to palpation present (GI) and Yes No hepatosplenomegaly present Extremity: COMMON NORMALS: normal to inspection, capillary refill normal, no clubbing, cyanosis or edema, no calf tenderness and no pedal edema Neuro: SENSORIUM/ORIENTATION: Yes alert, Yes oriented to person, Yes oriented to place and Yes oriented to time Skin: COMMON NORMALS: no rashes or lesions noted GENERAL SKIN EXAM: no rashes or lesions noted Course Vital Signs: Vital signs: Vital Signs Temperature 98.0 F 11/07/24 07:56 Pulse Rate 78 11/07/24 09:30 Respiratory Rate 16 11/07/24 07:56 Blood Pressure 134/70 11/07/24 09:30 Pulse Oximetry 98 11/07/24 09:30 Oxygen Delivery Me thod Room Air 11/07/24 07:56 MDM - Abdominal Pain Medical Decision Making Early acute appendicitis. Dr. Austin was consulted he recommends appendectomy. Patient placed on observation with pain and nausea medications also give dose of Zosyn. Lab Data 11/07/24 08:15 11/07/24 08:15 Labs/Radiology: Radiology Impressions Abdomen/Pelvis CT 11/07/24 08:40 IMPRESSION: 1. Prominent tortuous appendix with enhancement and slight induration measuring 7-8 mm in transverse dimension distally. Although not definitive, recommend correlation for early or mild appendicitis. 2. A few prominent lymph nodes in the RIGHT lower quadrant can be seen with mesenteric adenitis. 3. Fatty liver. 4. Prior cholecystectomy. 5. Prior hysterectomy. 6. No other acute findings. Notified Paul Aguero DO at 11/07/2024 9:41 AM. Laboratory Results WBC 6.91 10^3/uL (3.29-11.43) 11/07/24 08:15 RBC 4.13 10^6/uL (3.85-5.65) 11/07/24 08:15 Hgb 12.70 g/dL (11.27-16.99) 11/07/24 08:15 Hct 37.1 % (36-47) 11/07/24 08:15 MCV 89.8 fl (85-98) 11/07/24 08:15 MCH 30.8 pg (27-33) 11/07/24 08:15 MCHC 34.2 g/dL (30-55) 11/07/24 08:15 RDW 12.6 % (12.1-15.1) 11/07/24 08:15 Plt Count 332 10^3/cmm (157-399) 11/07/24 08:15 MPV 10.7 fL (7.4-10.4) H 11/07/24 08:15 Neut % (Auto) 59.1 % 11/07/24 08:15 Lymph % (Auto) 34.0 % 11/07/24 08:15 [place] % (Auto) 5.2 % 11/07/24 08:15 Eos % (Auto) 1.0 % 11/07/24 08:15 Baso % (Auto) 0.4 % 11/07/24 08:15 Neut # (Auto) 4.08 10^3/uL (1.8-7.7) 11/07/24 08:15 Lymph # (Auto) 2.4 10^3/uL (0.8-4.8) 11/07/24 08:15 [place] # (Auto) 0.4 10^3/uL (0.2-0.9) 11/07/24 08:15 Eos # (Auto) 0.1 10^3/uL (0.0-0.8) 11/07/24 08:15 Baso # (Auto) 0.0 10^3/uL (0.0-0.1) 11/07/24 08:15 Nucleated RBC % (auto) 0 % 11/07/24 08:15 Nucleated RBCs # 0.0 /100WBC 11/07/24 08:15 Sodium 137 mmol/L (136-145) 11/07/24 08:15 Potassium 3.9 mmol/L (3.5-5.1) 11/07/24 08:15 Chloride 100 mmol/L (98-107) 11/07/24 08:15 Carbon Dioxide 25 mmol/L (22-29) 11/07/24 08:15 Anion Gap 15.9 (5-19) 11/07/24 08:15 BUN 19 mg/dL (6-20) 11/07/24 08:15 Creatinine 0.6 mg/dL (0.5-0.9) 11/07/24 08:15 GFR Calculation 107.2 mL/min (90-130) 11/07/24 08:15 Glucose 116 mg/dL (65-115) H 11/07/24 08:15 Calculated Osmolality 287 mOsm/kg (285-295) 11/07/24 08:15 Calcium 9.8 mg/dL (8.5-10.5) 11/07/24 08:15 Total Bilirubin 0.3 mg/dL (0.15-1.2) 11/07/24 08:15 AST 16 U/L (0-32) 11/07/24 08:15 ALT 20 U/L (0-33) 11/07/24 08:15 Alkaline Phosphatase 96 U/L (35-105) 11/07/24 08:15 Total Protein 7.7 g/dL (6.6-8.7) 11/07/24 08:15 Albumin 4.7 g/dL (3.5-5.2) 11/07/24 08:15 Globulin 3.0 g/dL (1.3-4.6) 11/07/24 08:15 Lipase 38 U/L (13-60) 11/07/24 08:15 Urine Color Yellow (Yellow) 11/07/24 09:19 Urine Appearance Cloudy (CLEAR) A 11/07/24 09:19 Urine pH 7.5 (5-7) 11/07/24 09:19 Ur Specific [place] 1.030 (1.005-1.030) 11/07/24 09:19 Urine Protein Negative (Negative) 11/07/24 09:19 Urine Glucose (UA) Negative (Normal) 11/07/24 09:19 Urine Ketones Negative (Negative) 11/07/24 09:19 Urine Blood Negative (Negative) 11/07/24 09:19 Urine Nitrate Negative (Negative) 11/07/24 09:19 Urine Bilirubin Negative (Negative) 11/07/24 09:19 Urine Urobilinogen 0.2 mg/dL (Negative) 11/07/24 09:19 Ur Leukocyte Esterase Negative (Negative) 11/07/24 09:19 Urine RBC 0-2 /hpf (0-2) 11/07/24 09:19 Urine WBC 0-5 /hpf (0-5) 11/07/24 09:19 Ur Squamous Epith Cells 6-10 /hpf (0-5) 11/07/24 09:19 Amorphous Sediment Not Reportable 11/07/24 09:19 Urine Bacteria Trace /hpf (NONE) 11/07/24 09:19 Hyaline Casts 1.65 /lpf 11/07/24 09:19 All radiology interpretation(s) finalized by discharge Discharge Plan Discharge Patient Disposition: Admitted As Inpatient Clinical Impression: Acute appendicitis, Hx of cholecystectomy Condition: Stable Coding Level of Care Code ED Refrigeration Lead for Candice Meyers
[2024-11-07 08:37] LABS: Basophils % 0.4 %; Eosinophils # 0.1 10^3/uL (0.0-0.8); Hematocrit 37.1 % (36-47); Lymphocytes # 2.4 10^3/uL (0.8-4.8); Mean Corpuscular HGB Conc 34.2 g/dL (30-55); Mean Corpuscular Hemoglobin 30.8 pg (27-33); Mean Corpuscular Volume 89.8 fl (85-98); Mean Platelet Volume 10.7 fL (7.4-10.4); Monocytes # 0.4 10^3/uL (0.2-0.9); Monocytes % 5.2 %; Neutrophils # 4.08 10^3/uL (1.8-7.7); Neutrophils % 59.1 %; Nucleated Red Blood Cells % 0 %; Platelet Count 332 10^3/cmm (157-399); Red Blood Count 4.13 10^6/uL (3.85-5.65); Red Cell Distribution Width 12.6 % (12.1-15.1); White Blood Count 6.91 10^3/uL (3.29-11.43)
--- NOTE | 2024-11-07 08:40 | CT_ITS ---
WS: [id number] CT ABDOMEN PELVIS TECHNIQUE: Contrast-enhanced CT of the abdomen and pelvis with coronal and sagittal reformatted images. CLINICAL INFORMATION: abd pain COMPARISON: CT 07/26/2024 DLP: 510.[address] scans at [facility] use at least one of these dose optimization techniques: automated exposure control; mA and/or kV adjustment per patient size (includes targeted exams where dose is matched to clinical indication); or iterative reconstruction. FINDINGS: Fatty liver. Prior cholecystectomy. Prior hysterectomy lung bases are well aerated. Normal portal vein and splenic vein. Normal GE junction. Adrenal glands are normal. Normal renal parenchymal enhancement. No hydronephrosis. Normal caliber abdominal aorta. Normal sigmoid colon. No evidence of small or large bowel obstruction. Slightly prominent enhancing tortuous appendix measuring 7 to 8 mm in transverse dimension distally. Slight trace of induration in this area with a few prominent lymph nodes which also can be seen with adenitis. Recommend correlation for early or mild appendicitis. Appendix was previously normal in appearance and air-filled. CT/CT abdomen pelvis w con* [id number] IMPRESSION: 1. Prominent tortuous appendix with enhancement and slight induration measurin g 7-8 mm in transverse dimension distally. Although not definitive, recommend c orrelation for early or mild appendicitis. 2. A few prominent lymph nodes in the RIGHT lower quadrant can be seen with me senteric adenitis. 3. Fatty liver. 4. Prior cholecystectomy. 5. Prior hysterectomy. 6. No other acute findings. Notified Paul Aguero DO at 11/07/2024 9:41 AM.
[2024-11-07 08:47] LABS: Alanine Aminotransferase 20 U/L (0-33); Albumin Level 4.7 g/dL (3.5-5.2); Alkaline Phosphatase 96 U/L (35-105); Anion Gap 15.9 (5-19); Aspartate Amino Transferase 16 U/L (0-32); Blood Urea Nitrogen 19 mg/dL (6-20); Calcium 9.8 mg/dL (8.5-10.5); Carbon Dioxide 25 mmol/L (22-29); Chloride 100 mmol/L (98-107); Creatinine Clr Calc Pharmacy 124.5019; Glomerular Filtration Rate 107.2 mL/min (90-130); Glucose 116 mg/dL (65-115); Lipase 38 U/L (13-60); Osmolality Calculated 287 mOsm/kg (285-295); Potassium 3.9 mmol/L (3.5-5.1); Sodium 137 mmol/L (136-145); Total Bilirubin 0.3 mg/dL (0.15-1.2); Total Protein 7.7 g/dL (6.6-8.7)
[2024-11-07 09:37] LABS: Bilirubin Urine Negative (Negative); Blood Urine Negative (Negative); Glucose Urine UA Negative (Normal); Ketones Urine Negative (Negative); Leukocyte Esterase Urine Negative (Negative); Nitrate Urine Negative (Negative); Protein Urine Negative (Negative); Urine Appearance Cloudy (CLEAR); Urine Color Yellow (Yellow); Urobilinogen Urine 0.2 mg/dL (Negative); pH Urine 7.5 (5-7)
[2024-11-07 09:39] LABS: Add Urine Microscopic? YES; Bacteria Urine Trace /hpf; Hyaline Casts Urine 1.65 /lpf; RBC Urine 0-2 /hpf (0-2); WBC Urine 0-5 /hpf (0-5)
[2024-11-07] MEDS: ondansetron 2 mg/ML SDV 2 mL 4 MG IVP ×3 (09:55→14:39)
[2024-11-07] MEDS: sodium chloride 0.9% 1,000 ML 999 ML IV (09:56)
[2024-11-07] MEDS: ketorolac 30 mg/mL INJ IVP (10:00)
[2024-11-07] MEDS: piperacillin-tazobactam 3.375 GM in sodium chloride 0.9% (plus) 50 ML IV (10:04)
--- NOTE | 2024-11-07 10:40 | P.HP_ITS ---
Providers/Chief Complaint 2 Primary Care Provider: Tova Charles DO Chief Complaint: nausea,bloating, no bowel movement in 3 days, weak History of Present Illness Tara Goins is a 49 year old female who presented to the hospital with right lower quadrant abdominal pain. Patient states that she has been feeling abdominal pain in the right lower quadrant for 2 days the pain is quite sharp associated with diarrhea. No fever or chills. Has had similar pain in the past but last CT scan few months ago it was unremarkable. CT scan done today show evidence of possible mild acute appendicitis with some dilation of the appendix and some notes in the right lower quadrant. Review of Systems 2 General: Reports: 10 or more systems reviewed and unremarkable except in HPI and below Medications/Allergies Home Medications ?Medication ?Instructions ?Recorded ?Confirmed ?Last Taken ?Type tizanidine 4 mg tablet 4 mg PO Q6H PRN muscle spast icity 07/21/24 11/07/24 Unknown Rx #20 tabs hydrocodone 5 mg-acetaminophen 325 1 tab PO Q6H PRN pa in #14 tabs 07/26/24 11/07/24 Unknown Rx mg tablet buspirone 15 mg tablet 15 mg PO TID 11/07/2411/07/24 History duloxetine 30 mg capsule,delayed See Rx Instructions . Route .COMPLEX 11/07/24 11/07/24 11/07/24 History release methocarbamol 500 mg tablet 500 mg PO DAILY 11/07/24 0 11/07/24 11/06/24 History omeprazole 40 mg capsule,delayed 40 mg PO DAILY 11/07/24 11/07/24 History release ondansetron 4 mg disintegrating 4 mg PO Q8H PRN Nausea 11/07/24 11/07/24 Unknown History tablet sumatriptan succinate 25 mg tablet 25 mg PO Q2H PRN Mi graine Headache 11/07/24 11/07/24 Unknown History topiramate 50 mg tablet 50 mg PO BID 11/07/2411/07/24 History Allergies Allergy/AdvReac Type Severity Reaction Status Date / Time codeine Allergy ADR-Gastrointestinal Verified 09/16/24 21:27 Upset gabapentin Allergy ADR-Gastrointestinal Verified 09/16/24 21:27 Upset Sulfa (Sulfonamide Allergy ALGY-Anaphy Verified 09/16/24 21:27 Antibiotics) laxis PFSH Acute 2 PFSH: Medical History (Updated 11/07/24 @ 10:42 by Kali Austin MD) Cervical radiculopathy Chiari malformation Surgical History (Updated 11/07/24 @ 09:50 by Paul Aguero DO) Hx of cholecystectomy Vitals/I&O/Wt Last Vital Signs Temp 98.0 F 11/07/24 07:56 Pulse 78 11/07/24 09:30 Resp 16 11/07/24 07:56 BP 134/70 11/07/24 09:30 Pulse Ox 98 11/07/24 09:30 O2 Del Method Room Air 11/07/24 07:56 Weight last 48 hrs Weight 150 lb Physical Exam 2 GI: OTHER: Abdominal examination shows evidence of abdomen that soft is markedly tender in the right lower quadrant no rebound tenderness. Positive Rovsing. Positive [place] Data 11/07/24 08:15 11/07/24 08:15 A&P Assessment and plan (1) Acute appendicitis: Plan 49-year-old female who presents with clinical picture suspect issues for acute appendicitis. While her white count is normal she does have a exquisite tenderness in right lower quadrant and her CT scan showed evidence of a dilated appendix with some changes concerning for mild acute appendicitis. With this findings we have decided to offer her a laparoscopic possible open appendectomy. Discussed all risk benefits including the risk of perforation, need for additional interventions, injury to soft tissue, injury to the adjacent structures including the colon and small bowel ureter great vessels. Hernia formation, need conversion to open procedure. Need for prolonged hospital stay. Patient shows understanding agrees to proceed. PDMP PDMP Reviewed: Not Reviewed Attestations 2 Medical Necessity Statement*: Per medical plan for discharge after surgery Coding Level of Care Code Acute Code for [facility] Fwd Diagnoses Acute appendicitis K35.80
[2024-11-07] MEDS: iohexol 350 mg/mL 500 mL Btl (per mL) IV (11:38)
--- NOTE | 2024-11-07 12:18 | ANES.PREANE2 ---
Pre-Anesthetic Assessment Height/Weight: Height 4 ft 11 in Weight 150 lb Temp Pulse Resp BP Pulse Ox O2 Del Method 97.1 F L 76 16 104/80 98 Room Air 11/07/24 11:34 11/07/24 11:34 11/07/24 11:34 11/07/24 11:34 11/07/24 11:34 11/07/24 07:56 Preop Diagnosis: Acute appendicitis Operation Date: 11/07/24 13:25 Proposed Procedures p Laparoscopic Appendectomy-poss open(Not Applicable) - Kali Austin MD Was Beta Riley taken within 24 hours: N/A Was Clonidine taken within 24 hours: N/A Last intake: Intake Last Liquid Date 11/06/24 Last Liquid Time 18:30 Last Solid Date 11/05/24 Last Solid Time 12:00 Social No alcohol and No tobacco Quit smoking 2 months ago Exam alert, oriented x 3, clear to auscultation bilaterally and regular rate & rhythm Airway Submandibular: within normal limits Cervical ROM: within normal limits Mallampati: Class III Comments: Comments: Edentulous Anesthetic Plan ASA status: 2 Anesthesia: General Other: No prior issues with anesthesia NPO since yesterday evening History of GERD on omeprazole Quit smoking 2 months ago Labs reviewed and acceptable for procedure METs greater than 4, 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 Plan for GETA Medications/Allergies Home Medications ?Medication ?Instructions ?Recorded ?Confirmed ?Last Taken ?Type tizanidine 4 mg tablet 4 mg PO Q6H PRN muscle spasticity 07/21/24 11/07/24 Unknown Rx #20 tabs hydrocodone 5 mg-acetaminophen 325 1 tab PO Q6H PRN pain #14 tabs 07/26/24 11/07/24 Unknown Rx mg tablet buspirone 15 mg tablet 15 mg PO TID 11/07/24 11/07/24 11/07/24 History duloxetine 30 mg capsule,delayed See Rx Instructions .Route .COMPLEX 11/07/24 11/07/24 11/07/24 History release methocarbamol 500 mg tablet 500 mg PO DAILY 11/07/24 11/07/24 11/06/24 History omeprazole 40 mg capsule,delayed 40 mg PO DAILY 11/07/24 11/07/24 11/07/24 History release ondansetron 4 mg disintegrating 4 mg PO Q8H PRN Nausea 11/07/24 11/07/24 Unknown History tablet sumatriptan succinate 25 mg tablet 25 mg PO Q2H PRN Migraine Headache 11/07/24 11/07/24 Unknown History topiramate 50 mg tablet 50 mg PO BID 11/07/24 11/07/24 11/07/24 History Allergies Allergy/AdvReac Type Severity Reaction Status Date / Time codeine Allergy ADR-Gastrointestinal Verified 09/16/24 21:27 Upset gabapentin Allergy ADR-Gastrointestinal Verified 09/16/24 21:27 Upset Sulfa (Sulfonamide Allergy ALGY-Anaphy Verified 09/16/24 21:27 Antibiotics) laxis PFSH Anesthesia Medical History (Updated 11/07/24 @ 10:46 by Paul Aguero DO) Cervical radiculopathy Chiari malformation Surgical History (Updated 11/07/24 @ 10:46 by Paul Aguero DO) Hx of cholecystectomy Data Anesthesia 11/07/24 08:15 11/07/24 08:15 Short CBC 11/07/24 Range/Units 08:15 WBC 6.91 (3.29-11.43) 10^3/uL Hgb 12.70 (11.27-16.99) g/dL Hct 37.1 (36-47) % MCV 89.8 (85-98) fl Plt Count 332 (157-399) 10^3/cmm Neut % (Auto) 59.1 % Neut # (Auto) 4.08 (1.8-7.7) 10^3/uL BMP 11/07/24 08:15 Sodium 137 Potassium 3.9 Chloride 100 Carbon Dioxide 25 BUN 19 Creatinine 0.6 Glucose 116 H Calcium 9.8 Liver Function 11/07/24 Range/Units 08:15 Total Bilirubin 0.3 (0.15-1.2) mg/dL AST 16 (0-32) U/L ALT 20 (0-33) U/L Alkaline Phosphatase 96 (35-105) U/L Albumin 4.7 (3.5-5.2) g/dL Urine 11/07/24 Range/Units 09:19 Urine Color Yellow (Yellow) Urine Appearance Cloudy A (CLEAR) Urine pH 7.5 (5-7) Ur Specific [place] 1.030 (1.005-1.030) Urine Protein Negative (Negative) Urine Glucose (UA) Negative (Normal) Urine Ketones Negative (Negative) Urine Nitrate Negative (Negative) Urine Bilirubin Negative (Negative) Ur Leukocyte Esterase Negative (Negative) Urine RBC 0-2 (0-2) /hpf Urine WBC 0-5 (0-5) /hpf
[2024-11-07] MEDS: BUPivacaine 0.25% INJ 10 mL INJECTION (13:23)
[2024-11-07] MEDS: lidocaine-epi 1% 20 mL INJ 10 ML INJECTION (13:23)
--- NOTE | 2024-11-07 13:30 | PM.OP ---
Operative Report Date of procedure: November 07, 2024 Pre-op diagnosis: Acute appendicitis Post-op diagnosis: Same, adhesions from the omentum to the anterior abdominal wall Post-op findings: The appendix was inflamed in the distal section, healthy base. There was extensive adhesions from the omentum to the anterior abdominal wall at the level of the midline Procedure done: Laparoscopic appendectomy, laparoscopic lysis of additions Specimens removed/disposition: Appendix Surgeon: Kali Austin MD Web Marketing Intern: [facility] OR Staff Estimated blood loss: 10 Complications: None apparent Brief History: 49-year-old female presenting with abdominal pain located in the right lower quadrant CT scan show evidence of a possible early acute appendicitis. After discussion we will resume benefits as documented in my preop note with side to proceed to the OR for laparoscopic possible open appendectomy. Procedure: Patient was brought into the OR, she was placed in a supine position. General anesthesia was given. The abdomen was prepped and draped in the usual sterile fashion. A timeout was conducted. The abdomen was accessed via a 5 mm Optiview port in the left upper quadrant, initial pneumoperitoneum was obtained and no evidence of visceral injury during entry was noted. Extensive adhesions of the omentum to the anterior abdominal wall at the level of the midline from the supraumbilical location to the pelvis were noted. I had to pull the 5 mm trocar in the left flank under direct visualization to be able to take down those adhesions. Extensive lysis of additions was done, all omentum was taken down from the anterior abdominal wall and after that I evaluated the omentum and the small bowel and no evidence of visceral injury was noted. I then was able to identify the appendix in the right lower quadrant. An additional 2 mm trocar was placed in the infraumbilical location under direct visualization and a 5 mm trocar was placed in the suprapubic location under direct visualization. The patient was placed in the steep Trendelenburg with the left side down. The appendix was noted to be partially adhered to the terminal ileum, I bluntly were able to remove this additions, appendix also was adhered to the lateral abdominal wall in the mid section, I was able to take down these adhesions using sharp dissection. I then took down the mesoappendix from the tip of the appendix to the base of the appendix using the LigaSure. The base of appendix was healthy and then I proceeded to transect the appendix at this level with a 45 mm blue load Endo KISHA stapler. Observation of the staple line showed a hemostatic staple line that appeared healthy. The specimen was retrieved via the vehicle trocar site in an Endo Catch bag. Final inspection of the abdomen revealed no evidence of additional pathology. The omentum was pulled down and placed to cover the area of the staple line. The milker trocar site was removed and umbilical trocar site was closed with #0 Vicryl under direct visualization with a [place] suture passer. The suprapubic left flank trocars were removed under real visualization, the left upper quadrant trocar was used to acquire the pneumoperitoneum and subsequently removed. At the end of the procedure all counts were correct, the patient tolerated well the procedure was transferred to PACU in stable condition.
--- NOTE | 2024-11-07 13:44 | ANE.PACU2 ---
Inpatient post-anesthesia follow up: Airway intact: Yes Vital signs: Temperature 97.6 F Pulse Rate 78 Respiratory Rate 20 Blood Pressure 121/74 Pulse Oximetry 94 Oxygen Delivery Me thod Nasal Cannula Oxygen Flow Rate 2 Fraction of Inspir ed Oxygen Hydration adequate: Yes Nausea and vomiting: No Pain level: 1 Mental status: Baseline
[2024-11-07] MEDS: fentaNYL 50 mcg/mL INJ 2mL IVP ×2 (13:55→14:09)
[2024-11-07] MEDS: oxyCODONE 5 mg IR Tab/Cap PO (15:40)
--- NOTE | 2024-11-07 15:52 | SUR.PHASEII ---
1544 IV d/zita all intact,patient arrived from ER with IV fluids and when pt brought back to tn, Sil PACU nurse stated that this was her second bag of fluids with 500 left
== END 2024-11-07 16:50 | disposition home or self-care (01) ==
LOC: ER 11:08 → OR 11:14 → MEDSURG 13:27 → OR 15:25
PROVIDERS: Emergency Provider Family Medicine; PCP Family Medicine; Visit Provider Surgery
PROC: 0DTJ4ZZ Resection of Appendix, Percutaneous Endoscopic Approach (ICD-10-PCS; CPT 44970; principal; 2024-11-07 13:15)
PROC: (CPT 44970; 2024-11-07 13:15)
DX: K35.80 Unspecified acute appendicitis (principal); K21.9 Gastro-esophageal reflux disease without esophagitis; Z87.891 Personal history of nicotine dependence
CPT/HCPCS: 44970; 36415; 74177; 80053; 81001; 83690; 85025; 88304; J1100; J1885; J2250; J2405; J2543; J2704; J3010; J3490; J7030; J9999

== ENCOUNTER 2024-11-12 07:56 | Emergency (ER) | payer MEDICAID, SELFPAY ==
[2024-11-12 08:09] VITALS: BP 118/75; PULSE 88; RESP 16; TEMP 36.9; O2SAT 96; BMI 31.3
[2024-11-12 08:12] VITALS: BP 118/75; PULSE 90; RESP 18; TEMP 36.9; O2SAT 91
--- NOTE | 2024-11-12 08:15 | XR_ITS ---
WS: [id number] Exam: XR chest 1V portable [id number] Date/Time of Exam: 11/12/2024 8:16 AM Reason For Exam: dyspnea/cough Comparison 09/16/2004. The lungs are clear and fully expanded. Normal cardiomediastinal silhouette and regional bony elements. XR/XR chest 1V portable [id number] IMPRESSION: 1. No acute cardiopulmonary finding.
--- NOTE | 2024-11-12 08:16 | W.ED.NAVMDI ---
HPI - Nausea/Vomiting/Diarrhea General: Chief complaint: Nausea/Vomiting/Diarrhea Stated complaint: post op problems Time Seen by Provider: 11/12/24 08:10 History of Present Illness: 49-year-old female presents emergency room complaining of just generally not feeling well feeling very weak loss of appetite. She does not have any vomiting or diarrhea she had bowel movements normally. She is not having any abdominal pain. She denies any fever sweats or chills. No dysuria urgency or frequency. Associated symtoms: Denies chest pain or dysuria Related Data Home Medications ?Medication ?Instructions ?Recorded ?Confirmed buspirone 15 mg tablet 15 mg PO TID 11/07/24 11/12/24 duloxetine 30 mg capsule,delayed See Rx Instructions .Route .COMPLEX 11/07/24 11/12/24 release methocarbamol 500 mg tablet 500 mg PO DAILY 11/07/24 11/12/24 omeprazole 40 mg capsule,delayed 40 mg PO DAILY 11/07/24 11/12/24 release ondansetron 4 mg disintegrating 4 mg PO Q8H PRN Nausea 11/07/24 11/12/24 tablet sumatriptan succinate 25 mg tablet 25 mg PO Q2H PRN Migraine Headache 11/07/24 11/12/24 topiramate 50 mg tablet 50 mg PO BID 11/07/24 11/12/24 amoxicillin 875 mg-potassium 1 tab PO BID 11/12/24 11/12/24 clavulanate 125 mg tablet diphenhydramine HCl 25 mg tablet 25 mg PO Q8H 11/12/24 11/12/24 (Banophen) meloxicam 15 mg tablet 15 mg PO DAILY 11/12/24 11/12/24 Previous Rx's ?Medication ?Instructions ?Recorded tizanidine 4 mg tablet 4 mg PO Q6H PRN muscle spasticity 07/21/24 #20 tabs meloxicam 7.5 mg tablet 7.5 mg PO DAILY 7 days #7 tabs 11/07/24 oxycodone 5 mg tablet 5 mg PO Q8H PRN pain 6 days #20 11/07/24 tabs polyethylene glycol 3350 17 gram 17 g PO DAILY 7 days #7 ea 11/07/24 oral powder packet (Miralax) Allergies Allergy/AdvReac Type Severity Reaction Status Date / Time codeine Allergy ADR-Gastrointestinal Verified 09/16/24 21:27 Upset gabapentin Allergy ADR-Gastrointestinal Verified 09/16/24 21:27 Upset Sulfa (Sulfonamide Allergy ALGY-Anaphy Verified 09/16/24 21:27 Antibiotics) laxis Review of Systems Const: Denies: fever(s) or chills Card: Denies: chest pain Resp: Denies: dyspnea GI: Denies: abdominal pain : Denies: dysuria, urinary frequency or urinary urgency Musc: Denies: neck pain or back pain Skin/Breast: Denies: rash PFSH ED PFSH: Medical History Cervical radiculopathy Chiari malformation Surgical History Hx of cholecystectomy Physical Exam Const: GENERAL APPEARANCE: cooperative ORIENTATION/CONSCIOUSNESS: Yes awake, Yes oriented to person, Yes oriented to place and Yes oriented to time HENMT: COMMON NORMALS: normocephalic, atraumatic and hearing grossly normal bilaterally HEAD & SCALP: normocephalic and atraumatic Resp: COMMON NORMALS: normal respiratory effort, No retractions, No use of accessory muscles and clear to auscultation bilaterally AUSCULTATION: clear to auscultation bilaterally Cardio: COMMON NORMALS: regular rate, regular rhythm and No murmurs present (Cardio) RATE: regular rate RHYTHM: regular rhythm GI: COMMON NORMALS: Soft to palpation and No hepatosplenomegaly present AUSCULTATION: Yes normoactive bowel sounds PALPATION: Yes Soft to palpation, No Tenderness to palpation present (GI), No Guarding due to palpation present (GI) and Yes No hepatosplenomegaly present Extremity: COMMON NORMALS: normal to inspection, capillary refill normal, no clubbing, cyanosis or edema, no calf tenderness and no pedal edema Neuro: SENSORIUM/ORIENTATION: Yes oriented to person, Yes oriented to place and Yes oriented to time Skin: COMMON NORMALS: no rashes or lesions noted GENERAL SKIN EXAM: no rashes or lesions noted Course Vital Signs: Vital signs: Vital Signs Temperature 98.4 F 11/12/24 08:12 Pulse Rate 71 11/12/24 10:42 Respiratory Rate 18 11/12/24 08:12 Blood Pressure 115/73 11/12/24 10:42 Pulse Oximetry 97 11/12/24 10:42 Oxygen Delivery Me thod Room Air 11/12/24 10:12 MDM - Nausea/Vomiting/Diarrhea Medical Decision Making Benign abdominal exam no leukocytosis laboratory tests are unremarkable urine shows equal numbers of white blood cells and squamous cells of believe this is contaminant do not believe she actually has urinary tract symptoms infection at this time she has no symptoms of UTI. Increase fluids continue current medications have her follow-up with her primary surgeon if symptoms do not begin to improve no acute or emergent condition at this time. Medical Records I reviewed the patient's medical records. Lab Data I reviewed the patient's lab results. 11/12/24 08:20 11/12/24 08:20 Radiology Impressions Chest X-Ray 11/12/24 08:15 IMPRESSION: 1. No acute cardiopulmonary finding. Laboratory Results WBC 7.61 10^3/uL (3.29-11.43) 11/12/24 08:20 RBC 4.45 10^6/uL (3.85-5.65) 11/12/24 08:20 Hgb 13.40 g/dL (11.27-16.99) 11/12/24 08:20 Hct 40.2 % (36-47) 11/12/24 08:20 MCV 90.3 fl (85-98) 11/12/24 08:20 MCH 30.1 pg (27-33) 11/12/24 08:20 MCHC 33.3 g/dL (30-55) 11/12/24 08:20 RDW 12.1 % (12.1-15.1) 11/12/24 08:20 Plt Count 352 10^3/cmm (157-399) 11/12/24 08:20 MPV 10.5 fL (7.4-10.4) H 11/12/24 08:20 Neut % (Auto) 62.8 % 11/12/24 08:20 Lymph % (Auto) 30.1 % 11/12/24 08:20 [place] % (Auto) 4.3 % 11/12/24 08:20 Eos % (Auto) 1.8 % 11/12/24 08:20 Baso % (Auto) 0.5 % 11/12/24 08:20 Neut # (Auto) 4.77 10^3/uL (1.8-7.7) 11/12/24 08:20 Lymph # (Auto) 2.3 10^3/uL (0.8-4.8) 11/12/24 08:20 [place] # (Auto) 0.3 10^3/uL (0.2-0.9) 11/12/24 08:20 Eos # (Auto) 0.1 10^3/uL (0.0-0.8) 11/12/24 08:20 Baso # (Auto) 0.0 10^3/uL (0.0-0.1) 11/12/24 08:20 Nucleated RBC % (auto) 0 % 11/12/24 08:20 Nucleated RBCs # 0.0 /100WBC 11/12/24 08:20 Sodium 138 mmol/L (136-145) 11/12/24 08:20 Potassium 4.3 mmol/L (3.5-5.1) 11/12/24 08:20 Chloride 100 mmol/L (98-107) 11/12/24 08:20 Carbon Dioxide 24 mmol/L (22-29) 11/12/24 08:20 Anion Gap 18.3 (5-19) 11/12/24 08:20 BUN 16 mg/dL (6-20) 11/12/24 08:20 Creatinine 0.7 mg/dL (0.5-0.9) 11/12/24 08:20 GFR Calculation 89.7 mL/min (90-130) L 11/12/24 08:20 Glucose 117 mg/dL (65-115) H 11/12/24 08:20 Calculated Osmolality 288 mOsm/kg (285-295) 11/12/24 08:20 Calcium 9.9 mg/dL (8.5-10.5) 11/12/24 08:20 Total Bilirubin 0.3 mg/dL (0.15-1.2) 11/12/24 08:20 AST 28 U/L (0-32) 11/12/24 08:20 ALT 30 U/L (0-33) 11/12/24 08:20 Alkaline Phosphatase 103 U/L (35-105) 11/12/24 08:20 Total Protein 8.2 g/dL (6.6-8.7) 11/12/24 08:20 Albumin 4.6 g/dL (3.5-5.2) 11/12/24 08:20 Globulin 3.6 g/dL (1.3-4.6) 11/12/24 08:20 Lipase 35 U/L (13-60) 11/12/24 08:20 Urine Color Yellow (Yellow) 11/12/24 10:00 Urine Appearance Clear (CLEAR) 11/12/24 10:00 Urine pH 6.5 (5-7) 11/12/24 10:00 Ur Specific [place] 1.017 (1.005-1.030) 11/12/24 10:00 Urine Protein Negative (Negative) 11/12/24 10:00 Urine Glucose (UA) Negative (Normal) 11/12/24 10:00 Urine Ketones 1+ (Negative) H 11/12/24 10:00 Urine Blood Negative (Negative) 11/12/24 10:00 Urine Nitrate Negative (Negative) 11/12/24 10:00 Urine Bilirubin Negative (Negative) 11/12/24 10:00 Urine Urobilinogen 1.0 mg/dL (Negative) 11/12/24 10:00 Ur Leukocyte Esterase Negative (Negative) 11/12/24 10:00 Urine RBC 0-2 /hpf (0-2) 11/12/24 10:00 Urine WBC 11-20 /hpf (0-5) H 11/12/24 10:00 Ur Squamous Epith Cells 11-20 /hpf (0-5) H 11/12/24 10:00 Amorphous Sediment Not Reportable 11/12/24 10:00 Urine Bacteria 1+ /hpf (NONE) H 11/12/24 10:00 Hyaline Casts 0-4 /lpf H 11/12/24 10:00 No radiology studies performed this visit Discharge Plan Discharge Patient Disposition: Home Clinical Impression: Malaise, S/P appendectomy Condition: Stable Prescriptions: No Action meloxicam 15 mg Tablet 15 mg PO DAILY diphenhydramine HCl [Banophen] 25 mg tablet 25 mg PO Q8H amoxicillin-pot clavulanate 875-125 mg tablet 1 tab PO BID tizanidine 4 mg tablet 4 mg PO Q6H PRN (Reason: muscle spasticity) Qty: 20 0RF Rx Instructions: do not exceed 3 doses per 24 hrs methocarbamol 500 mg Tablet 500 mg PO DAILY sumatriptan succinate 25 mg Tablet 25 mg PO Q2H PRN (Reason: Migraine Headache) Rx Instructions: do not exceed 8 doses per 24 hrs omeprazole 40 mg Capsule,Delayed Release(Dr/Ec) 40 mg PO DAILY ondansetron 4 mg Tablet,Disintegrating 4 mg PO Q8H PRN (Reason: Nausea) buspirone 15 mg Tablet 15 mg PO TID topiramate 50 mg Tablet 50 mg PO BID duloxetine 30 mg Capsule,Delayed Release(Dr/Ec) See Rx Instructions .ROUTE .COMPLEX Rx Instructions: Take 30 mg by mouth daily for 1 week, then increase to 60mg daily. polyethylene glycol 3350 [Miralax] 17 gram powder in packet 17 g PO DAILY 7 Days Qty: 7 0RF meloxicam 7.5 mg tablet 7.5 mg PO DAILY 7 Days Qty: 7 0RF oxycodone 5 mg tablet 5 mg PO Q8H PRN (Reason: pain) 6 Days Qty: 20 0RF Discharge Orders: Discharge ED (Routine); Ordered 11/12/24 Ordered By: Paul Aguero Referrals: Tova Charles DO [Primary Care Provider, Family Practice] Discharge Diet: Clear Liquid Discharge Activity: Increase activity as tolerated Patient Instructions: Opioid Safety, Pain Management Activity Restrictions/Additional Instructions: Thank you for choosing [facility] for your healthcare needs today. It is very important that you follow up as instructed or that you return to the Emergency Department should you have concerns or if your condition changes or worsens in any way. You were seen in the emergency room with complaints of generally not feeling well. Your white count was normal although your chemistry panel including your liver functions are in normal ranges today. Urine did not show signs of infection. Remainder of your exam was otherwise unremarkable. Print Language: Serbian Coding Level of Care Code ED Business Functional Analyst for Candice Meyers
[2024-11-12 08:31] LABS: Basophils % 0.5 %; Eosinophils # 0.1 10^3/uL (0.0-0.8); Eosinophils % 1.8 %; Hematocrit 40.2 % (36-47); Lymphocytes # 2.3 10^3/uL (0.8-4.8); Lymphocytes % 30.1 %; Mean Corpuscular HGB Conc 33.3 g/dL (30-55); Mean Corpuscular Hemoglobin 30.1 pg (27-33); Mean Corpuscular Volume 90.3 fl (85-98); Mean Platelet Volume 10.5 fL (7.4-10.4); Monocytes # 0.3 10^3/uL (0.2-0.9); Monocytes % 4.3 %; Neutrophils # 4.77 10^3/uL (1.8-7.7); Neutrophils % 62.8 %; Nucleated Red Blood Cells % 0 %; Platelet Count 352 10^3/cmm (157-399); Red Blood Count 4.45 10^6/uL (3.85-5.65); Red Cell Distribution Width 12.1 % (12.1-15.1); White Blood Count 7.61 10^3/uL (3.29-11.43)
[2024-11-12] MEDS: sodium chloride 0.9% 1,000 ML 999 ML IV (08:34)
[2024-11-12 08:44] LABS: Alanine Aminotransferase 30 U/L (0-33); Albumin Level 4.6 g/dL (3.5-5.2); Alkaline Phosphatase 103 U/L (35-105); Anion Gap 18.3 (5-19); Aspartate Amino Transferase 28 U/L (0-32); Blood Urea Nitrogen 16 mg/dL (6-20); Calcium 9.9 mg/dL (8.5-10.5); Carbon Dioxide 24 mmol/L (22-29); Chloride 100 mmol/L (98-107); Creatinine Clr Calc Pharmacy 110.2732; Globulin 3.6 g/dL (1.3-4.6); Glomerular Filtration Rate 89.7 mL/min (90-130); Glucose 117 mg/dL (65-115); Lipase 35 U/L (13-60); Osmolality Calculated 288 mOsm/kg (285-295); Potassium 4.3 mmol/L (3.5-5.1); Sodium 138 mmol/L (136-145); Total Bilirubin 0.3 mg/dL (0.15-1.2); Total Protein 8.2 g/dL (6.6-8.7)
[2024-11-12 10:12] VITALS: BP 122/74; PULSE 69; O2SAT 96
[2024-11-12 10:12] LABS: Bilirubin Urine Negative (Negative); Blood Urine Negative (Negative); Glucose Urine UA Negative (Normal); Ketones Urine 1+ (Negative); Leukocyte Esterase Urine Negative (Negative); Nitrate Urine Negative (Negative); Protein Urine Negative (Negative); Specific Gravity, Urine 1.017 (1.005-1.030); Urine Appearance Clear (CLEAR); Urine Color Yellow (Yellow); pH Urine 6.5 (5-7)
[2024-11-12 10:14] LABS: Add Urine Microscopic? YES; Bacteria Urine 1+ /hpf; Hyaline Casts Urine 0-4 /lpf; RBC Urine 0-2 /hpf (0-2); Universal Test for UA Present (0)
[2024-11-12 10:35] LABS: UA Slide Review UA Slide Review Perf
[2024-11-12 10:42] VITALS: BP 115/73; PULSE 71; O2SAT 97
== END 2024-11-12 10:42 | disposition home or self-care (01) ==
PROVIDERS: Emergency Provider Family Medicine; PCP Family Medicine
DX: Z98.890 Other specified postprocedural states (principal); R53.81 Other malaise
CPT/HCPCS: 36415; 71045; 80053; 81001; 83690; 85025; 96360; 96361; 99284; J7030

== ENCOUNTER → 2024-12-04 10:14 | Outpatient (BNVA) | payer OTHER, MEDICAID, SELFPAY | PROVIDERS: PCP Family Medicine; Visit Provider Orthopaedic Surgery | DX: M48.02 Spinal stenosis, cervical region (principal); M54.2 Cervicalgia; Z01.818 Encounter for other preprocedural examination | CPT/HCPCS: 36415; 72050; 80053; 81001; 85025 ==

== ENCOUNTER → 2024-12-31 16:22 | Outpatient (BNVA) | payer MEDICAID, SELFPAY | PROVIDERS: PCP Family Medicine; Visit Provider Family Medicine | DX: Z01.818 Encounter for other preprocedural examination (principal) | CPT/HCPCS: 81003 ==

== ENCOUNTER 2025-01-02 06:10 | Day surgery (SDC) | payer OTHER, MEDICAID, SELFPAY ==
[2025-01-02] VITALS (23 sets, daily range): BP systolic 123–147; BP diastolic 75–87; PULSE 70–91; RESP 16–20; TEMP 36.1–36.7; O2SAT 90–100; BMI 30.1
--- NOTE | 2025-01-02 06:17 | ANES.PREANE2 ---
Pre-Anesthetic Assessment Height/Weight: Height 4 ft 11 in Preop Diagnosis: Cervical spinal stenosis Operation Date: 01/02/25 07:00 Proposed Procedures p Anterior Cervical Discectomy & Fusion ACDF(Not Applicable) - Pasquale Cifuentes DO Was Beta Riley taken within 24 hours: N/A Was Clonidine taken within 24 hours: N/A Social No alcohol and No tobacco Quit smoking 4 months ago Exam alert, oriented x 3, clear to auscultation bilaterally and regular rate & rhythm Airway Submandibular: within normal limits Cervical ROM: within normal limits Mallampati: Class III Comments: Comments: Edentulous Anesthetic Plan ASA status: 2 Anesthesia: General Other: No prior issues with anesthesia NPO since yesterday evening History of GERD on omeprazole Quit smoking 2 months ago Labs reviewed and acceptable for procedure METs greater than 4, 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 Plan for GETA Medications/Allergies Home Medications ?Medication ?Instructions ?Recorded ?Confirmed ?Last Taken ?Type tizanidine 4 mg tablet 4 mg PO Q6H PRN muscle spasticity 07/21/24 01/01/25 01/01/25 Rx #20 tabs buspirone 15 mg tablet 15 mg PO TID 11/07/24 01/01/25 01/02/25 History duloxetine 30 mg capsule,delayed 30 mg PO DAILY 11/07/24 01/01/25 01/01/25 History release methocarbamol 500 mg tablet 500 mg PO DAILY 11/07/24 01/01/25 12/27/24 History omeprazole 40 mg capsule,delayed 40 mg PO DAILY 11/07/24 01/01/25 01/02/25 History release ondansetron 4 mg disintegrating 4 mg PO Q8H PRN Nausea 11/07/24 01/01/25 11/11/24 History tablet sumatriptan succinate 25 mg tablet 25 mg PO Q2H PRN Migraine Headache 11/07/24 01/01/25 Unknown History topiramate 50 mg tablet 50 mg PO BID 11/07/24 01/01/25 01/01/25 History meloxicam 15 mg tablet 15 mg PO DAILY 11/12/24 01/01/25 12/27/24 History Bone Growth Stimulator #1 ea 12/19/24 Unknown Rx Allergies Allergy/AdvReac Type Severity Reaction Status Date / Time amoxicillin (From Augmentin) Allergy made me Verified 12/31/24 12:40 sick clavulanic acid (From Allergy made me Verified 12/31/24 12:40 Augmentin) sick codeine Allergy ADR-Gastrointestinal Verified 12/31/24 12:39 Upset gabapentin Allergy ADR-Gastrointestinal Verified 12/31/24 12:39 Upset Sulfa (Sulfonamide Allergy ALGY-Anaphy Verified 12/31/24 12:39 Antibiotics) laxis [facility] Anesthesia Medical History Cervical radiculopathy Chiari malformation Surgical History History of laparoscopic appendectomy Hx of cholecystectomy Social History Smoking and tobacco/nicotine status: former use of tobacco/nicotine
--- NOTE | 2025-01-02 06:24 | W.PM.OPSUD ---
Surgery/Procedure H&P Update DATE OF PROCEDURE: January 02, 2025 DATE H&P PERFORMED: 12/04/24 H&P UPDATE INFORMATION: I have reviewed H&P completed within last 30 days, I have examined patient prior to procedure and No changes to prior documentation PREOP DIAGNOSIS: Cervical spinal stenosis PLANNED PROCEDURE: Operation Date: 01/02/25 07:00 Proposed Procedures p Anterior Cervical Discectomy & Fusion ACDF(Not Applicable) - Pasquale Cifuentes DO
[2025-01-02] MEDS: lidocaine-epi 1% 20 mL INJ INJECTION (07:52)
--- NOTE | 2025-01-02 08:50 | PM.OP ---
Operative Report Date of procedure: January 02, 2025 Pre-op diagnosis: Cervical stenosis with radiculopathy Post-op diagnosis: same Procedure done: 1. Anterior diskectomy C5/6 2. Insertion of cage C5/6 3. Instrumentation with anterior plate from C5-C6 4. Use of allograft Surgeon: Pasquale Cifuentes DO Estimated blood loss (mL): 10 Procedure: 1. Anterior diskectomy C5/6 2. Insertion of cage C5/6 3. Instrumentation with anterior plate from C5-C6 4. Use of allograft The patient was taken to the operating room, where he underwent general endotracheal anesthesia without complications. He was then positioned supine on the operating table, and all areas of impingement were well padded. The arms were carefully padded and tucked at his sides. A roll was placed between the shoulder blades.. An x-ray was done to determine the appropriate level for the skin incision. The entire neck was then sterilely prepped and draped in the usual fashion. Neuromonitoring was attached prior to prepping. A transverse skin incision was made and carried down to the platysma muscle. This was then split in line with its fibers. Blunt dissection was carried down medial to the carotid sheath and lateral to the trachea and esophagus until the anterior cervical spine was visualized. A needle was placed into a disc and an x-ray was done to determine its location. The longus colli muscles were then elevated bilaterally with the electrocautery unit. Self-retaining retractors were placed deep to the longus colli muscle. Attention was brought to the C5/6 level that was confirmed on x-ray. A caspar pin was placed into the C5 vertebrae and the C6 vertebrae. The disk space was then distracted. The microscope was then brought in. A radical anterior discectomies were performed at C5/6. This included complete removal of the anterior annulus, nucleus, and posterior annulus. The posterior longitudinal ligament was removed as were the posterior osteophytes. Foraminotomies were then accomplished bilaterally. This was done using a high speed arti, kerrison rongeurs and curretes Once all of this was accomplished, the curved currette was used to check for any residual compression. The central canal was wide open as were the foramen. A high-speed bur was used to remove the cartilaginous endplates above and below the interspace. Bleeding cancellous bone was exposed. The disc space were measured and appropriate size cage were placed sterilely onto the field. Allograft graft was packed into the cages. The cage was then placed and there was good juxtaposition against the bleeding decorticated surfaces and good distraction of each interspace. The [place] pins were removed. Bone wax was used to prevent any bleeding from occurring at the pin sites. The appropriate size anterior cervical locking plate was chosen and bent into gentle lordosis. Two screws were then placed into each of the vertebral bodies at C5 and C6. There was excellent purchase. A final x-ray was done confirming good position of the hardware and Cages. The locking screws were then applied, also with excellent purchase. Following a final copious irrigation, there was good hemostasis and no dural leaks. The carotid pulse was strong. The wounds were then closed in layers using 2-0 Vicryl suture for the platysma muscle, 2-0 Vicryl suture for the subcutaneous tissue, and 4-0 monocryl suture in a subcuticular skin closure. Glue was placed followed by application of a sterile dressing. The drain was hooked to bulb suction. A soft collar was applied. The patient was then carefully returned to the supine position on his hospital bed where he was reversed and extubated and taken to the recovery room having tolerated the procedure well.
[2025-01-02] MEDS: fentaNYL 50 mcg/mL INJ 2mL IVP ×2 (08:51→08:56)
[2025-01-02] MEDS: HYDROmorphone 1 mg/mL INJ 1ml (09:40)
[2025-01-02] MEDS: diphenhydrAMINE 50 mg/mL SDV 1mL 12.5 MG IVP (10:36)
--- NOTE | 2025-01-02 12:05 | ANE.PACU2 ---
Inpatient post-anesthesia follow up: Airway intact: Yes Vital signs: Temperature 97 F Pulse Rate 79 Respiratory Rate 16 Blood Pressure 126/78 Pulse Oximetry 93 Oxygen Delivery Me thod Room Air Oxygen Flow Rate 1 Fraction of Inspir ed Oxygen Hydration adequate: Yes Nausea and vomiting: No Pain level: 1 Mental status: Baseline
--- NOTE | 2025-01-02 16:23 | XR_ITS ---
WS: [id number] Cervical spine, C-arm fluoroscopy views, 01/02/2025 Clinical Data: or pic, acdf Comparison: Cervical spine, 12/04/2024 Findings: Dr. Cifuentes performed an anterior cervical disc fusion XR/XR cervical spine 3V* [id number] Impression: Anterior cervical disc fusion.
== END 2025-01-02 12:05 | disposition home or self-care (01) ==
PROVIDERS: PCP Family Medicine; Visit Provider Orthopaedic Surgery
PROC: 0RB30ZZ Excision of Cervical Vertebral Disc, Open Approach (ICD-10-PCS; CPT 22551; principal; 2025-01-02 07:00)
DX: M48.02 Spinal stenosis, cervical region (principal); M54.12 Radiculopathy, cervical region; K21.9 Gastro-esophageal reflux disease without esophagitis; Z87.891 Personal history of nicotine dependence; F43.10 Post-traumatic stress disorder, unspecified
CPT/HCPCS: 22551; 22845; 20930; 72040; 76000; A7015; C1713; C1763; C9359; J0131; J0330; J1100; J1171; J1200; J2371; J2704; J3010; J3490; J7030; J9999

== ENCOUNTER 2025-01-07 12:21 | Emergency (ER) | payer OTHER, MEDICAID, SELFPAY ==
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
--- OUTSIDE RECORDS SUMMARY | 2025-01-04 10:00 | XMS_ITS | Encounter Summary ---
Author Organization [facility] Address [address] [place] [address] Care Team Providers Care Refractive Surgeon Name Role Phone Tova Charles Primary Care Provider Reason for Visit * Reason Comments Follow Up Encounter Details Date Type Department Care Team ([facility] st Contact Info) Description 01/04/2025 10:00 AM CDT Video Visit [facility] [place] [address] [place] [address] August, [facility] [address] [place] [address] S/P spinal surgery (Primary Dx) Social History Tobacco Use Types Packs/Day Years Used Date Smoking Tobacco: Former Cigarettes 2 8 0 05/23/1996 - 05/23/2004 Passive Smoke Exposure: Past Smokeless Tobacco: Never Alcohol Use Standard Drinks/Week Comments Not Currently 0 (1 standard drink = 0.6 oz pur e alcohol) Comments No Sex and Gender Information Value Date Recorded Sex Assigned at Female 06/08/2024 6:45 AM 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 Legal Sex Female 8:50 AM 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 Gender Identity Female 06/08/2024 6:45 AM 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 Sexual Orientation Lesbian or Bess 06/08/2024 6: 45 AM 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 documented as of this encounter Last Filed Vital Signs Vital Sign Reading Time Taken Comments Blood Pressure - - Pulse - - Temperature - - Respiratory Rate - - Oxygen Saturation - - Inhaled Oxygen Concentration - - Weight 69.9 kg (154 lb) 01/04/2025 10:08 AM CDT stated Height 149.9 cm (4' 11 ) 01/04/2025 10:08 AM CDT stated Body Mass Index 31.1 01/04/2025 10:08 AM CDT documented in this encounter Progress Notes * Carolina August, SUPERVISOR CELL ROOM - 01/04/2025 10:25 AM CDT Patient's identity confirmed yes Patient gave verbal consent to have these services billed to their insurance and expressed understanding that co-insurance and deductible may apply: yes Patient was located at home. This encounter was completed via two-way synchronous audio and video communication. Chief Complaint Patient presents with Follow Up History of Present Illness The patient is a 49-year-old female who presents for a video visit to follow up after surgery. She underwent surgery on 01/02/2025, which involved the repair and fusion of C5 and C6. A follow-up appointment has been scheduled in 2 weeks. She reports satisfactory pain management post-surgery, with no need for additional pain medication today. She has resumed her muscle relaxers and meloxicam, which appear to be effectively controlling her pain. The primary source of discomfort is swallowing, rather than headaches or neck pain. She is considering reducing her headache medication to assess if itis still necessary. She also mentions some residual pain radiating down her right arm, which feels s lightly heavy. However, she notes a significant improvement in her condition, as she was able to sit up without a neck brace for 10 minutes without experiencing severe pain, a feat she could not achieve prior to the surgery. 10 point review of systems is otherwise negative except as mentioned above. Past Medical History: Diagnosis Date Arthritis Breast cancer (CMS/HCC) 2012 Removed. Chemo and radiation Dyspnea on exertion PEACE (generalized anxiety disorder) Headache Malignant neoplasm of ovary (CMS/HCC) 2012 Removed chemo radiation Personal history of chemotherapy 2012 Personal history of radiation therapy 2012 Current Outpatient Medications Medication Instructions busPIRone (BUSPAR) 15 mg, Oral, THREE TIMES DAILY PRN diclofenac sodium (VOLTAREN) 75 mg, TWO TIMES DAILY DULoxetine (CYMBALTA) 30 mg Capsule, Delayed Release(E.C.) TAKE 2 CAPSULES DAILY EPINEPHrine (EPIPEN) 0.3 mg, IM, DAILY PRN HYDROcodone-acetaminophen (NORCO) 5-325 mg tablet 1-2 Tablets, EVERY 6 HOURS PRN meloxicam (MOBIC) 15 mg, Oral, DAILY methocarbamoL (ROBAXIN) 500 mg, Oral, TWO TIMES DAILY multivitamin (DAILY-KENDRA) tablet 1 Tablet, DAILY omeprazole (PRILOSEC) 40 mg, Oral, DAILY ondansetron (ZOFRAN ODT) 4 mg Tablet, Rapid Dissolve DISSOLVE 1 TABLET ON TOP OF TONGUE EVERY 8 HOURS, THEN SWALLOW WITH SALIVA NEEDED FOR NAUSEA AND VOMITING SUMAtriptan (IMITREX) 25 mg, Oral, EVERY 2 HOURS PRN, may repeat in 2 hours; max dose 200mg in 24 hours tiZANidine (ZANAFLEX) 4 mg, EVERY 6 HOURS PRN topiramate (TOPAMAX) 50 mg, Oral, TWO TIMES DAILY Past Surgical History: Procedure Laterality Date BREAST CYST, PUNCTURE ASPIRATION 2011 HX BREAST LUMPECTOMY FOR CANCER 2011 HX COLECTOMY 2009 Done in [place] HX CORE NEEDLE BREAST BIOPSY 2011 HX EXCISION / BIOPSY BREAST / NIPPLE / DUCT 2011 HX HYSTERECTOMY 2011 HX VAGINOPLASTY 2009 [place] BRONCHOSCOPY W/TRANSBRONCHIAL LUNG BX 1 LOBE N/A 10/05/2024 BRONCHOSCOPY performed by Celia Elkins MD at [facility] ENDOSCOPY Past social, family, and medical history reviewed. Ht 4' 11 (1.499 m) Comment: stated Wt 69.9 kg (154 lb) Comment: stated BMI 31.10 kg/m?? Physical Exam Due to video visit limited vital signs and physical exam obtained. Physical Exam Constitutional: General: She is not in acute distress. Pulmonary: Effort: Pulmonary effort is normal. Neurological: Mental Status: She is alert. Psychiatric: Mood and Affect: Mood normal. Assessment & Plan 1. Postoperative status. - Currently in the recovery phase following a surgical procedure that involved the repair and fusion of C5 and C6. - Pain is manageable with muscle relaxers and meloxicam; no additional pain medication needed today. - Experiences some discomfort when swallowing, which is expected due to the recent surgery. Residual pain in the right arm is significantly less than before the surgery. - Advised to continue current pain management regimen and monitor symptoms. Plans to gradually reduce headache medication to assess if it is still needed. Follow-up appointment with the surgeon is scheduled in 2 weeks. - Will request records. ROSENDO Valle The author of this note, patient (or authorized community representative), and all other persons present consent to the audio recording of this visit for charting documentation purposes. This note was automatically generated, edited by a Quality Kick Plate Installer, and finalized by ANNMARIE Valle. documented in this encounter Plan of Treatment Not on file documented as of this encounter Visit Diagnoses Diagnosis S/P spinal surgery- Primary Other postprocedural status documented in this encounter Care Teams Refractive Surgeon Relationship Specialty Start Date End Date Tova Charles DO [address] [place] [address] PCP - General Family Practice 05/31/24 documented as of this encounter
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
--- OUTSIDE RECORDS SUMMARY | 2025-01-07 12:27 | XMS_ITS | Encounter Summary ---
Author Organization [facility] Address [address] [place] [address] Care Team Providers Care Regulatory Submissions Specialist Name Role Phone Tova Charles DO Primary Care Provider Encounter Details Date Type Department Care Team (Latest Contact Info) Description 11/11/2024 Results Follow-Up [facility] [place] [address] [place] [address] Figueroaaugust, RECORDAK OPERATOR [address] [place] [address] COMPREHENSIVE METABOLIC PANEL, CBC WITH DIFFERENTIAL, QUEST TEST IN QUESTION (ACTION NEEDED) (NO MY CHART) Social History Tobacco Use Types Packs/Day Years Used Date Smoking Tobacco: Former Cigarettes 2 8 0 05/23/1996 - 05/23/2004 Passive Smoke Exposure: Past Smokeless Tobacco: Never Alcohol Use Standard Drinks/Week Comments Not Currently 0 (1 standard drink = 0.6 oz pur e alcohol) Comments No Sex and Gender Information Value Date Recorded Sex Assigned at Female 06/08/2024 6:45 AM TOP INSTALLER Legal Sex Female 8:50 AM TOP INSTALLER Gender Identity Female 06/08/2024 6:45 AM TOP INSTALLER Sexual Orientation Lesbian or Bess 06/08/2024 6: 45 AM TOP INSTALLER documented as of this encounter Plan of Treatment Scheduled Orders Name Type Priority Associated Diagnoses Orde r Schedule COMPREHENSIVE METABOLIC PANEL Lab Routine Elevated liver enzymes Expected: 12/11/2024, Expires: 11/11/2025 documented as of this encounter Visit Diagnoses Diagnosis Elevated liver enzymes- Primary Nonspecific elevation of levels of transaminase or lactic acid dehydrogenase (LDH) documented in this encounter Care Teams Regulatory Submissions Specialist Relationship Specialty Start Date End Date Tova Charles DO [address] [place] [address] PCP - General Family Practice 05/31/24 documented as of this encounter
--- OUTSIDE RECORDS SUMMARY | 2025-01-07 12:28 | XMS_ITS | Clinical Summary ---
Author Organization [facility] [place] broder[place] Address [address] [place] [address] Phone Care Team Providers Care Inspector Type Name Role Phone MelvinTova adams Primary Care Provider Allergies Active Allergy Reactions Criticality Noted Date Comments Amoxicillin-Pot Clavulanate Hepatic Dysfunction High 01/04/2025 Causes increase liver functions Codeine Nausea and Vomiting Low 05/31/2024 Gabapentin Rash Low 05/31/2024 Sulfa (Sulfonamide Antibiotics) Anaphylaxis High 05/31/2024 Medications multivitamin (DAILY-KENDRA) tablet Take 1 Tablet by mouth daily. Active methocarbamoL (ROBAXIN) 500 mg tabletIndicati ons:Foraminal stenosis of cervical region Take 1 Tablet (500 mg) by mouth 2 times daily. 90 Tablet 3 07/02/19 25 Active diclofenac sodium (VOLTAREN) 75 mg Tablet, Delayed Release (E.C.) Take 75 mg by mouth 2 times daily. Active tiZANidine (ZANAFLEX) 4 mg Tablet Take 4 mg by mouth every 6 hours as needed for Spasm. Active SUMAtriptan (IMITREX) 25 mg tabletIndicati ons:Migraine without aura and without status migrainosus, not intractable Take 1 Tablet (25 mg) by mouth every 2 hours as needed for Migraine. may repeat in 2 hours; max dose 200mg in 24 hours 30 Tablet 2 08/24/19 25 Active omeprazole (PriLOSEC) 40 mg Capsule, Delayed Release(E.C.) Take 1 Capsule (40 mg) by mouth daily. 30 Capsule 3 10/03/19 25 Active topiramate (Topamax) 50 mg tabletIndicati ons:Migraine without aura and without status migrainosus, not intractable Take 1 Tablet (50 mg) by mouth 2 times daily. 60 Tablet 3 11/01/19 25 Active busPIRone (BUSPAR) 15 mg TabletIndicati ons:Anxiety Take 1 Tablet (15 mg) by mouth 3 times daily as needed for Anxiety. 90 Tablet 3 11/01/19 25 Active meloxicam (MOBIC) 15 mg tabletIndicati ons:Chronic neck pain Take 1 Tablet (15 mg) by mouth daily. 90 Tablet 2 11/03/19 25 Active EPINEPHrine (EPIPEN) 0.3 mg/0.3 mL Auto-Injector Inject 0.3 mL (0.3 mg) by intramuscular injection 1 time daily as needed for Anaphylaxis. 2 Each 1 11/21/19 25 Active DULoxetine (CYMBALTA) 30 mg Capsule, Delayed Release(E.C.)I ndications:Sit uational mixed anxiety and depressive disorder,Chron ic neck pain TAKE 2 CAPSULES DAILY 180 Capsule 1 12/27/19 25 Active ondansetron (ZOFRAN ODT) 4 mg Tablet, Rapid DissolveIndica tions:Nausea DISSOLVE 1 TABLET ON TOP OF TONGUE EVERY 8 HOURS, THEN SWALLOW WITH SALIVA NEEDED FOR NAUSEA AND VOMITING 30 Tablet 1 12/28/19 25 Active HYDROcodone-ac etaminophen (NORCO) 5-325 mg tablet Take 1-2 Tablets by mouth every 6 hours as needed. 01/03/20 25 Active DULoxetine (CYMBALTA) 30 mg Capsule, Delayed Release(E.C.)I ndications:Sit uational mixed anxiety and depressive disorder,Chron ic neck pain Take 1 capsule (30 mg) daily for 1 week, then take 2 capsules (60 mg) daily. 60 Capsule 1 11/07/19 25 2024 Discontinued ondansetron (ZOFRAN ODT) 4 mg Tablet, Rapid DissolveIndica tions:Nausea Take 1 Tablet (4 mg) by mouth every 8 hours as needed for Nausea/Emesis. Dissolve tablet on top of tongue, then swallow with saliva. 30 Tablet 1 11/07/19 25 2024 Discontinued Active Problems Problem Noted Date Diagnosed Date Hemoptysis 10/05/2024 Nodule of upper lobe of left lung 06/04/2024 Overview (06/04/2024): Dx by CT chest without contrast on 10/13/2023. Cervical spondylosis 06/04/2024 Cerebellar tonsillar ectopia 06/04/2024 Overview (06/04/2024): Dx on 10/12/2023 at [facility] , 5 mm size Arnold-Chiari malformation 06/04/2024 Prediabetes 06/01/2024 Encounters Date Type Department Care Team Description 01/04/2025 10:00 AM CDT Video Visit [facility] [address] [place] [address] Figueroaaugust, [employer] S/P spinal surgery (Primary Dx) 12/27/2024 Refill [facility] [address] [place] [address] Figueroaaugust, [employer] Nausea 12/26/2024 Refill [facility] [address] [place] [address] Figueroa, August, [employer] Situational mixed anxiety and depressive disorder; Chronic neck pain 12/25/2024 External Device Data ST[facility] ABSTRACTION Provider, Abstract 12/20/2024 Orders Only [facility] [address] [place] [address] Figueroaaugust, [employer] Foraminal stenosis of cervical region (Primary Dx) 12/05/2024 External Device Data STL ABSTRACTION Provider, Abstract 12/04/2024 External Device Data ST[facility] ABSTRACTION Provider, Abstract 11/22/2024 1:00 PM CDT Office Visit [facility] [address] [place] [address] Violeta Young NP Arnold-Chiari malformation ([facility]) (Primary Dx); Frequent headaches; Neck pain; Cervical stenosis of spine 11/20/2024 Orders Only [facility] [address] [place] [address] FigueroaAugust, [employer] 11/20/2024 Orders Only [facility] [address] [place] [address] Provider, Abstract 11/13/2024 Orders Only [facility] [address] [place] [address] Provider, Abstract 11/11/2024 Results Follow-Up [facility] [address] [place] [address] August, [employer] COMPREHENSIVE METABOLIC PANEL, CBC WITH DIFFERENTIAL, QUEST TEST IN QUESTION (ACTION NEEDED) (NO MY CHART) 11/09/2024 2:00 PM CDT Office Visit [facility] [address] [place] [address] August, [employer] S/P laparoscopic appendectomy (Primary Dx) 11/07/2024 Orders Only [facility] [address] [place] [address] Provider, Abstract 11/06/2024 2:00 PM CDT Video Visit [facility] [address] [place] [phone] August, [employer] Situational mixed anxiety and depressive disorder (Primary Dx); Nausea; Abdominal bloating with cramps; Chronic neck pain 11/06/2024 External Device Data STL ABSTRACTION Provider, Abstract 11/02/2024 Orders Only [facility] [address] [place] [phone] August, [employer] Chronic neck pain (Primary Dx) 10/31/2024 3:00 PM CDT Video Visit [facility] [address] [place] [phone] August, [employer]ERSON Migraine without aura and without status migrainosus, not intractable (Primary Dx); Chronic neck pain; Chronic joint pain; Anxiety 10/24/2024 Results Follow-Up [facility] [address] [place] [address] Celia Elkins MD CYTOLOGY, NON GYNE, FUNGUS CULTURE, OTHER, FUNGUS STAIN, Additional followed-up results: 6 10/23/2024 External Device Data ST[facility] ABSTRACTION Provider, Abstract 10/11/2024 External Device Data STL ABSTRACTION Provider, Abstract 10/10/2024 External Device Data STL ABSTRACTION Provider, Abstract 10/09/2024 External Device Data STL ABSTRACTION Provider, Abstract 10/08/2024 Orders Only [facility] [address] [place] [phone] Swapna Salmeron NP Arnold-Chiari malformation (CMS/HCC) (Primary Dx); Cervical spondylosis from Last 3 Months Family History Medical History Relation Name Comments Cancer - Other Maternal Grandfather Олег Lung Cancer Maternal Grandfather Олег Pancreatic Cancer Maternal Grandfather Олег Breast Cancer Maternal Grandmother Nicole Breast Cancer Mother Rachel Ovarian Cancer Mother Rachel Relation Name Status Comments Maternal Grandfather Олег Alive Maternal Grandmother Nicole Alive Mother Rachel Alive Social History Tobacco Use Types Packs/Day Years Used Date Smoking Tobacco: Former Cigarettes 2 8 0 05/23/1996 - 05/23/2004 Passive Smoke Exposure: Past Smokeless Tobacco: Never Alcohol Use Standard Drinks/Week Comments Not Currently 0 (1 standard drink = 0.6 oz pur e alcohol) Comments No Sex and Gender Information Value Date Recorded Sex Assigned at Female 06/08/2024 6:45 AM VICE PRESIDENT PROCESS Legal Sex Female 8:50 AM VICE PRESIDENT PROCESS Gender Identity Female 06/08/2024 6:45 AM VICE PRESIDENT PROCESS Sexual Orientation Lesbian or Bess 06/08/2024 6: 45 AM VICE PRESIDENT PROCESS Last Filed Vital Signs Vital Sign Reading Time Taken Comments Blood Pressure 118/72 11/22/2024 1:01 PM CDT Pulse 91 11/09/2024 2:05 PM CDT Temperature 36.7 C (98 F) 11/09/2024 2:05 PM CDT Respiratory Rate 18 11/09/2024 2:05 PM CDT Oxygen Saturation 94% 11/09/2024 2:05 PM CDT Inhaled Oxygen Concentration - - Weight 69.9 kg (154 lb) 01/04/2025 10:08 AM CDT stated Height 149.9 cm (4' 11 ) 01/04/2025 10:08 AM CDT stated Body Mass Index 31.1 01/04/2025 10:08 AM CDT Plan of Treatment Health Maintenance Due Date Last Done Comments DTAP/TDAP/TD VACCINES (1 - Tdap) 1996 HEPATITIS B VACCINES (1 of 3 - 19+ 3-dose series) 1996 HPV/Cotest (21-29) 1998 CERVICAL CANCER SCREENING 10/28/2007 HPV/Cotest (30-65) 10/28/2007 PAP SMEAR 10/28/2007 COLORECTAL SCREENING 2022 Colorectal Cancer Screening 2022 FIT-DNA Q 3 years 2022 FIT/FOBT Q 1 year 2022 Flex Sig/CT Colonography Q 5 years 2022 Preventative Visit- Commercial 05/23/2024 INFLUENZA VACCINE (#1) 2024 07/02/2024 BREAST CANCER SCREENING 06/08/2025 06/08/2024 Pre-Diabetes and Diabetes Screening 05/31/202705/31, 10/13/2023 Procedures Procedure Name Priority Date/Time Associated Diagnosis Comments COMPREHENSIVE METABOLIC PANEL Routine 11/12/2024 12:08 PM CDT QUEST TEST IN QUESTION (ACTION NEEDED) (NO MY CHART) Routine 11/09/2024 2:39 PM CDT CBC WITH DIFFERENTIAL Routine 11/09/2024 2:39 PM CDT S/P laparoscopic appendectomy COMPREHENSIVE METABOLIC PANEL Routine 11/09/2024 2:39 PM CDT S/P laparoscopic appendectomy COMPREHENSIVE METABOLIC PANEL Routine 11/07/2024 3:07 PM CDT MRI BRAIN WO CONTRAST Routine 10/31/2024 4:10 PM CDT MRI CERVICAL WO CONTRAST Routine 10/31/2024 4:07 PM CDT TELEMETRY REPORT 10/09/2024 10:0 3 AM CDT MAMMO 3D ZAIN SCREEN BILAT W OR WO CAD Routine 06/08/2024 9:13 AM VICE PRESIDENT PROCESS Screening mammogram, encounter for HEMOGLOBIN A1C Routine 05/31/2024 9:16 AM VICE PRESIDENT PROCESS Encounter to establish care with new doctor Prediabetes from Last 3 Months or Most Recently Relevant to Health Maintenance Results * COMPREHENSIVE METABOLIC PANEL (11/12/2024 12:08 PM CDT) Only the most recent of3 resultswithin the time period is included. Blood us Abstract Provider CHEMISTRY ORDERABLES Final Res ult * QUEST TEST IN QUESTION (ACTION NEEDED) (NO MY CHART) (11/09/2024 2:39 PM CDT) REPORT/SPECIMEN COMMENT [facility] Comment: Whole blood, unspun or partially spun gel barrier tube was received more than 6 hours since collection. A false elevation of K, Phos and LD as well as a false decrease in glucose may occur due to prolonged contact with red cells. Test Performed at: [facility] [address] [place] [address] Elian Oates MD 11/09/2024 2:39 PM CDT 11/10/2024 3:16 AM CDT us August [employer] SAL[employer]ERSON CHEMISTRY ORDERABLES Final Resul t [facility] [phone] [facility] [address] [place] [address] * (ABNORMAL) CBC WITH DIFFERENTIAL (11/09/2024 2:39 PM CDT) WBC 8.1 3.8 - 10.8 Thousand/u L [facility] RBC 3.92 3.80 - 5.10 Million/uL [facility] HEMOGLOBIN 12.0 11.7 - 15.5 g/dL [facility] HEMATOCRIT 38.0 35.0 - 45.0 % [facility] MCV 96.9 80.0 - 100.0 fL [facility] MCH 30.6 27.0 - 33.0 pg [facility] MCHC 31.6(L) 32.0 - 36.0 g/dL [facility] Comment: For adults, a slight decrease in the calculated MCHC value (in the range of 30 to 32 g/dL) is most likely not clinically significant; however, it should be interpreted with caution in correlation with other red cell parameters and the patient's clinical condition. RDW 12.7 11.0 - 15.0 % [facility] PLATELETS 322 140 - 400 Thousand/u L [facility] MPV 11.1 7.5 - 12.5 fL [facility] NEUTROPHIL ABSOLUTE 4,471 1,500 - 7,800 cells/uL [facility] LYMPHOCYTE ABSOLUTE 3,038 850 - 3,900 cells/uL [facility] MONOCYTE ABSOLUTE 470 200 - 950 cells/uL [facility] EOSINOPHIL ABSOLUTE 89 15 - 500 cells/uL [facility] BASOPHILS ABSOLUTE 32 0 - 200 cells/uL [facility] NEUTROPHIL 55.2 % [facility] LYMPHOCYTES 37.5 % [facility] MONOCYTE 5.8 % [facility] EOSINOPHILS 1.1 % [facility] BASOPHILS 0.4 % [facility] Comment: Test Performed at: [facility] [address] [place] [address] Elian Oates MD Blood 11/09/2024 2:39 PM CDT 11/10/2024 3:16 AM CDT August [employer] SAL[employer]ERSON HEMATOLOGY ORDERABLES Final Resu lt [facility] [phone] [facility] [address] [phone] * MRI BRAIN WO CONTRAST (10/31/2024 4:10 PM CDT) Anatomical Region Laterality Modality Head Magnetic Resonan ce us Abstract Provider MR ORDERABLES Final Result * MRI CERVICAL WO CONTRAST (10/31/2024 4:07 PM CDT) Anatomical Region Laterality Modality Spine Magnetic Resonan ce us Abstract Provider MR ORDERABLES Final Result * TELEMETRY REPORT (10/09/2024 10:03 AM CDT) us Provider Scanning ECG ORDERABLES Final Result * MAMMO 3D ZAIN SCREEN BILAT W OR WO CAD (06/08/2024 9:13 AM VICE PRESIDENT PROCESS) Anatomical Region Laterality Modality Breast Bilateral Mammography, Dig ital Radiography Impressions 06/10/2024 8:49 PM VICE PRESIDENT PROCESS : No mammographic evidence of malignancy. BI-RADS ASSESSMENT: 1 - Negative RECOMMENDATION: Routine annual screening mammography. Narrative 06/10/2024 8:49 PM VICE PRESIDENT PROCESS EXAM: MAMMO SCRN BILAT 3D ZAIN W OR WO CAD INDICATION: Screening COMPARISON: No comparisons are available. BREAST COMPOSITION: There are scattered areas of fibroglandular density. FINDINGS: RIGHT BREAST: There are no suspicious masses, calcifications, or areas of architectural distortion. LEFT BREAST: There are no suspicious masses, calcifications, or areas of architectural distortion. us Miranda Adams [employer] SAL[employer]ERSON MAMMO ORDERABLES Final Res ult * (ABNORMAL) HEMOGLOBIN A1C (05/31/2024 9:16 AM VICE PRESIDENT PROCESS) HEMOGLOBIN A1C 5.9(H) <5.7 % of total Hgb [facility] Comment: For someone without known diabetes, a hemoglobin A1c value between 5.7% and 6.4% is consistent with prediabetes and should be confirmed with a follow-up test. For someone with known diabetes, a value <7% indicates that their diabetes is well controlled. A1c targets should be individualized based on duration of diabetes, age, comorbid conditions, and other considerations. This assay result is consistent with an increased risk of diabetes. Currently, no consensus exists regarding use of hemoglobin A1c for diagnosis of diabetes for children. ESTIMATED AVERAGE GLUCOSE (MG/DL) 123 mg/dL [facility] ESTIMATED AVERAGE GLUCOSE (MMOL/L) 6.8 mmol/L [facility] Comment: Test Performed at: [facility] [address] [phone] Elian Oates MD Blood 05/31/2024 9:16 AM VICE PRESIDENT PROCESS 06/01/2024 4:56 AM VICE PRESIDENT PROCESS us Miranda Amaya Angie [employer] SAL[employer]ERSON CHEMISTRY ORDERABLES Final Result [facility] [phone] [facility] [address] [address] [phone] from Last 3 Months or Most Recently Relevant to Health Maintenance [place] [address] [place] [address] HEALTH PLAN MEDICAID [facility] Advance Directives For more information, please contact: [phone] * Full Code (Latest Code Status on File) Date Activated Date Inactivated Comments 10/05/2024 10:13 AM 10/05/2024 3:36 PM Care Teams Inspector Type Relationship Specialty Start Date End Date Tova Charles DO [address] [place] [address] PCP - General Family Practice 05/31/24
[2025-01-07 12:35] VITALS: BP 139/87; PULSE 90; TEMP 37; O2SAT 94; BMI 30.2
[2025-01-07 13:40] VITALS: BP 163/108; PULSE 79; RESP 14; O2SAT 98
--- NOTE | 2025-01-07 13:58 | W.ED.EXTPRO ---
HPI - Extremity Problem General: Chief complaint: Extremity Problem,Nontraumatic Stated complaint: 5 days post neck fusion, tinlging & pain in R arm Time Seen by Provider: 01/07/25 13:20 History of Present Illness: 49-year-old female 5 days postop from a ACDF. According to the MRI patient had neural impingement at C5-6 she is not complaining of numbness tingling extending into her hands particularly her right arm. No trauma or falls since this was done. Not having any pain at this time. No fever sweats or chills. MRI and operative notes reviewed. Associated symptoms: Deny chest pain, fever(s) or rash Related Data Home Medications ?Medication ?Instructions ?Recorded ?Confirmed buspirone 15 mg tablet 15 mg PO TID 11/07/24 01/01/25 duloxetine 30 mg capsule,delayed 30 mg PO DAILY 11/07/24 01/01/25 release methocarbamol 500 mg tablet 500 mg PO DAILY 11/07/24 01/01/25 omeprazole 40 mg capsule,delayed 40 mg PO DAILY 11/07/24 01/01/25 release ondansetron 4 mg disintegrating 4 mg PO Q8H PRN Nausea 11/07/24 01/01/25 tablet sumatriptan succinate 25 mg tablet 25 mg PO Q2H PRN Migraine Headache 11/07/24 01/01/25 topiramate 50 mg tablet 50 mg PO BID 11/07/24 01/01/25 meloxicam 15 mg tablet 15 mg PO DAILY 11/12/24 01/01/25 Held on 01/02/25. Instructions: Resume on 01/04/25. Previous Rx's ?Medication ?Instructions ?Recorded tizanidine 4 mg tablet 4 mg PO Q6H PRN muscle spasticity 07/21/24 #20 tabs Bone Growth Stimulator #1 ea 12/19/24 hydrocodone 5 mg-acetaminophen 325 1 - 2 tab PO .Q4-6H #40 tabs 01/02/25 mg tablet prednisone 20 mg tablet 20 mg PO TID #15 tabs 01/07/25 Allergies Allergy/AdvReac Type Severity Reaction Status Date / Time amoxicillin (From Augmentin) Allergy made me Verified 01/07/25 12:40 sick clavulanic acid (From Allergy made me Verified 01/07/25 12:40 Augmentin) sick codeine Allergy ADR-Gastrointestinal Verified 01/07/25 12:40 Upset gabapentin Allergy ADR-Gastrointestinal Verified 01/07/25 12:40 Upset Sulfa (Sulfonamide Allergy ALGY-Anaphy Verified 01/07/25 12:40 Antibiotics) laxis Review of Systems Const: Denies: fever(s) or chills Card: Denies: chest pain Resp: Denies: dyspnea GI: Denies: abdominal pain : Denies: dysuria, urinary frequency or urinary urgency Musc: Denies: neck pain or back pain Skin/Breast: Denies: rash PFSH ED PFSH: Medical History (Updated 01/07/25 @ 15:32 by Paul Aguero DO) Cervical radiculopathy Chiari malformation Surgical History History of laparoscopic appendectomy Hx of cholecystectomy Social History Smoking and tobacco/nicotine status: former use of tobacco/nicotine Physical Exam Const: COMMON NORMALS: no acute distress GENERAL APPEARANCE: cooperative and comfortable ORIENTATION/CONSCIOUSNESS: Yes awake, Yes oriented to person, Yes oriented to place and Yes oriented to time HENMT: COMMON NORMALS: normocephalic, atraumatic and hearing grossly normal bilaterally HEAD & SCALP: normocephalic and atraumatic Resp: COMMON NORMALS: normal respiratory effort, No retractions, No use of accessory muscles and clear to auscultation bilaterally AUSCULTATION: clear to auscultation bilaterally Cardio: COMMON NORMALS: regular rate, regular rhythm and No murmurs present (Cardio) RATE: regular rate RHYTHM: regular rhythm GI: COMMON NORMALS: Soft to palpation and No hepatosplenomegaly present AUSCULTATION: Yes normoactive bowel sounds PALPATION: Yes Soft to palpation, No Tenderness to palpation present (GI), No Guarding due to palpation present (GI) and Yes No hepatosplenomegaly present Extremity: COMMON NORMALS: normal to inspection, capillary refill normal, no clubbing, cyanosis or edema, no calf tenderness and no pedal edema Neuro: SENSORIUM/ORIENTATION: Yes oriented to person, Yes oriented to place and Yes oriented to time OTHER: Deep tendon reflexes +2 for at the biceps bilaterally +1/4 at the triceps and brachioradialis. Sensation to the hand slightly decreased in C7-8 distribution on the right compared to the left Skin: COMMON NORMALS: no rashes or lesions noted GENERAL SKIN EXAM: no rashes or lesions noted Course Vital Signs: Vital signs: Vital Signs Temperature 98.6 F 01/07/25 12:35 Pulse Rate 80 01/07/25 15:45 Respiratory Rate 14 01/07/25 13:40 Blood Pressure 139/98 01/07/25 15:45 Pulse Oximetry 98 01/07/25 15:45 Oxygen Delivery Me thod Room Air 01/07/25 13:40 MDM - Extremity (Nontraumatic) Medical Decision Making Surgery was at C5-6. Discussed with Dr. Cifuentes. No significant findings on the CT. Suspect this may be due to swelling localized. There is no fluid collections no leukocytosis will discharge patient home on steroid pack per Dr. Cifuentes's suggestion. She has follow-up with him tomorrow. Medical Records I reviewed the patient's medical records. Lab Data I reviewed the patient's lab results. 01/07/25 14:03 01/07/25 14:03 Radiology Impressions Cervical Spine CT 01/07/25 14:05 Impression: 1. Anterior cervical disc fusion C5-C6. 2. Minimal postoperative air adjacent to the disc fusion. Laboratory Results WBC 6.70 10^3/uL (3.29-11.43) 01/07/25 14:03 RBC 4.21 10^6/uL (3.85-5.65) 01/07/25 14:03 Hgb 12.80 g/dL (11.27-16.99) 01/07/25 14:03 Hct 38.9 % (36-47) 01/07/25 14:03 MCV 92.4 fl (85-98) 01/07/25 14:03 MCH 30.4 pg (27-33) 01/07/25 14:03 MCHC 32.9 g/dL (30-55) 01/07/25 14:03 RDW 12.5 % (12.1-15.1) 01/07/25 14:03 Plt Count 355 10^3/cmm (157-399) 01/07/25 14:03 MPV 9.9 fL (7.4-10.4) 01/07/25 14:03 Neut % (Auto) 47.2 % 01/07/25 14:03 Lymph % (Auto) 43.3 % 01/07/25 14:03 Overton % (Auto) 5.1 % 01/07/25 14:03 Eos % (Auto) 3.4 % 01/07/25 14:03 Baso % (Auto) 0.4 % 01/07/25 14:03 Neut # (Auto) 3.16 10^3/uL (1.8-7.7) 01/07/25 14:03 Lymph # (Auto) 2.9 10^3/uL (0.8-4.8) 01/07/25 14:03 Overton # (Auto) 0.3 10^3/uL (0.2-0.9) 01/07/25 14:03 Eos # (Auto) 0.2 10^3/uL (0.0-0.8) 01/07/25 14:03 Baso # (Auto) 0.0 10^3/uL (0.0-0.1) 01/07/25 14:03 Nucleated RBC % (auto) 0 % 01/07/25 14:03 Nucleated RBCs # 0.0 /100WBC 01/07/25 14:03 Sodium 140 mmol/L (136-145) 01/07/25 14:03 Potassium 4.1 mmol/L (3.5-5.1) 01/07/25 14:03 Chloride 101 mmol/L (98-107) 01/07/25 14:03 Carbon Dioxide 29 mmol/L (22-29) 01/07/25 14:03 Anion Gap 14.1 (5-19) 01/07/25 14:03 BUN 15 mg/dL (6-20) 01/07/25 14:03 Creatinine 0.6 mg/dL (0.5-0.9) 01/07/25 14:03 GFR Calculation 107.2 mL/min (90-130) 01/07/25 14:03 Glucose 97 mg/dL (65-115) 01/07/25 14:03 Calculated Osmolality 291 mOsm/kg (285-295) 01/07/25 14:03 Calcium 9.4 mg/dL (8.5-10.5) 01/07/25 14:03 Total Bilirubin 0.2 mg/dL (0.15-1.2) 01/07/25 14:03 AST 18 U/L (0-32) 01/07/25 14:03 ALT 44 U/L (0-33) H 01/07/25 14:03 Alkaline Phosphatase 110 U/L (35-105) H 01/07/25 14:03 Total Protein 7.5 g/dL (6.6-8.7) 01/07/25 14:03 Albumin 4.7 g/dL (3.5-5.2) 01/07/25 14:03 Globulin 2.8 g/dL (1.3-4.6) 01/07/25 14:03 All radiology interpretation(s) finalized by discharge Discharge Plan Discharge Patient Disposition: Home Clinical Impression: Stenosis of cervical spine region, Adjacent segment disease of cervical spine at C5-C6 level with history of fusion procedure Condition: Stable Prescriptions: New prednisone 20 mg tablet 20 mg PO TID Qty: 15 0RF Rx Instructions: 1 p.o. 3 times daily x3 days, 1 p.o. twice daily x2 days, 1 p.o. daily x2 days No Action (DME) Bone Growth Stimulator See Rx Instructions .Route .MEDSUPPLY Qty: 1 0RF Rx Instructions: As directed meloxicam 15 mg Tablet 15 mg PO DAILY tizanidine 4 mg tablet 4 mg PO Q6H PRN (Reason: muscle spasticity) Qty: 20 0RF Rx Instructions: do not exceed 3 doses per 24 hrs methocarbamol 500 mg Tablet 500 mg PO DAILY sumatriptan succinate 25 mg Tablet 25 mg PO Q2H PRN (Reason: Migraine Headache) Rx Instructions: do not exceed 8 doses per 24 hrs omeprazole 40 mg Capsule,Delayed Release(Dr/Ec) 40 mg PO DAILY ondansetron 4 mg Tablet,Disintegrating 4 mg PO Q8H PRN (Reason: Nausea) buspirone 15 mg Tablet 15 mg PO TID topiramate 50 mg Tablet 50 mg PO BID duloxetine 30 mg Capsule,Delayed Release(Dr/Ec) 30 mg PO DAILY Rx Instructions: Take 30 mg by mouth daily for 1 week, then increase to 60mg daily. hydrocodone-acetaminophen 5-325 mg tablet 1 - 2 tab PO .Q4-6H Qty: 40 0RF Discharge Orders: Discharge ED (Routine); Ordered 01/07/25 Ordered By: Paul Aguero Referrals: Tova Charles, DO [Primary Care Provider, [facility]] Discharge Diet: Usual diet Discharge Activity: Resume usual activity Patient Instructions: Opioid Safety, Pain Management, Patient Portal & Jimenez Instructions Activity Restrictions/Additional Instructions: Thank you for choosing [facility] for your healthcare needs today. It is very important that you follow up as instructed or that you return to the Emergency Department should you have concerns or if your condition changes or worsens in any way. You are seen emergency room with complaints of decreased sensation in your right arm. CT of your neck did not show any acute abnormalities showed changes consistent with your recent surgery. Discussed your presenting symptoms today with Dr. Irina Stephen neurosurgery who recommends steroids and follow-up with him later this week. Continue to wear the collar at all times. Print Language: Syriac Coding Level of Care Code ED Car Pincher for Candice Meyers
[2025-01-07] MEDS: methylPREDNISolone sod succ 125 mg/2 mL INJ IVP (14:00)
--- NOTE | 2025-01-07 14:05 | CT_ITS ---
WS: [id number] CT cervical spine with IV contrast. Additional two-dimensional coronal and sagittal reconstruction was performed. Clinical Data: Postop pain numbness tingling right arm Comparison: Cervical spine, 12/04/2024 DLP: 190.[address] scans at [facility] use at least one of these dose optimization techniques: automated exposure control; mA and/or kV adjustment per patient size (includes targeted exams where dose is matched to clinical indication); or iterative reconstruction. Findings: No compression fractures are seen. The anterior cervical disc fusion at C5-C6 with an artificial disc is in good position. No displacement or loosening is seen. There is minimal air surrounding the surgical site which is residual from the recent surgery. The disc heights are normal. The spinous processes are in good alignment. The odontoid is unremarkable. There is no prevertebral soft tissue swelling. The soft tissues of the cervical spine and the lung apices are not remarkable. No abnormal contrast enhancement of any structure occurs. CT/CT cervical spine w con [id number] Impression: 1. Anterior cervical disc fusion C5-C6. 2. Minimal postoperative air adjacent to the disc fusion.
[2025-01-07 14:08] LABS: Hematocrit 38.9 % (36-47); Hemoglobin 12.80 g/dL (11.27-16.99); Mean Corpuscular HGB Conc 32.9 g/dL (30-55); Mean Corpuscular Hemoglobin 30.4 pg (27-33); Mean Corpuscular Volume 92.4 fl (85-98); Nucleated Red Blood Cells % 0 %; Platelet Count 355 10^3/cmm (157-399); Red Blood Count 4.21 10^6/uL (3.85-5.65); White Blood Count 6.70 10^3/uL (3.29-11.43)
[2025-01-07 14:27] LABS: Alanine Aminotransferase 44 U/L (0-33); Albumin Level 4.7 g/dL (3.5-5.2); Alkaline Phosphatase 110 U/L (35-105); Anion Gap 14.1 (5-19); Aspartate Amino Transferase 18 U/L (0-32); Blood Urea Nitrogen 15 mg/dL (6-20); Calcium 9.4 mg/dL (8.5-10.5); Carbon Dioxide 29 mmol/L (22-29); Chloride 101 mmol/L (98-107); Creatinine Clr Calc Pharmacy 124.5019; Globulin 2.8 g/dL (1.3-4.6); Glucose 97 mg/dL (65-115); Osmolality Calculated 291 mOsm/kg (285-295); Potassium 4.1 mmol/L (3.5-5.1); Sodium 140 mmol/L (136-145); Total Protein 7.5 g/dL (6.6-8.7)
[2025-01-07] MEDS: iohexol 350 mg/mL 500 mL Btl (per mL) IV (14:53)
[2025-01-07 15:00] VITALS: BP 155/76; PULSE 71; O2SAT 96
[2025-01-07 15:45] VITALS: BP 139/98; PULSE 80; O2SAT 98
== END 2025-01-07 15:46 | disposition home or self-care (01) ==
PROVIDERS: Emergency Provider Family Medicine; PCP Family Medicine
DX: M48.02 Spinal stenosis, cervical region (principal); M50.822 Other cervical disc disorders at C5-C6 level; M43.22 Fusion of spine, cervical region; Z98.1 Arthrodesis status; Z98.890 Other specified postprocedural states; Z87.891 Personal history of nicotine dependence
CPT/HCPCS: 36415; 72126; 80053; 85025; 96374; 96375; 99285; J1885; J2919

== ENCOUNTER 2025-01-29 11:53 | Emergency (ER) | payer OTHER, MEDICAID, SELFPAY ==
--- OUTSIDE RECORDS SUMMARY | 2025-01-23 12:00 | XMS_ITS | Encounter Summary ---
Author Organization [facility] Address [address] [place] [address] Care Team Providers Care Floor Tiling Professional Name Role Phone Tova Charles Primary Care Provider [phone] Reason for Visit * Reason Comments Follow Up Pain Encounter Details Date Type Department Care Team ([facility] st Contact Info) Description 01/23/2025 12:00 PM CDT Video Visit [facility] [place] [address] [place] [address] August, [facility] [address] [place] [address] S/P spinal surgery (Primary Dx) Social History Tobacco Use Types Packs/Day Years Used Date Smoking Tobacco: Former Cigarettes 2 8 0 05/23/1996 - 05/23/2004 Passive Smoke Exposure: Past Smokeless Tobacco: Never Tobacco Cessation:Counseling Given: No Alcohol Use Standard Drinks/Week Comments Not Currently 0 (1 standard drink = 0.6 oz pur e alcohol) Feeling Safe Answer Date Recorded Are you in a relationship wi th someone who hurts you emotionally and/or physically? No 10/05/2024 Comments No Sex and Gender Information Value Date Recorded Sex Assigned at Female 06/08/2024 6:45 AM NOVELTY [employer]ANDY [employer] Legal Sex Female 8:50 AM NOVELTY CANDY MAKER Gender Identity Female 06/08/2024 6:45 AM NOVELTY CANDY [employer]KER Sexual Orientation Lesbian or Bess 06/08/2024 6: 45 AM NOVELTY CANDY MAKER documented as of this encounter Last Filed Vital Signs Vital Sign Reading Time Taken Comments Blood Pressure - - Pulse - - Temperature - - Respiratory Rate - - Oxygen Saturation - - Inhaled Oxygen Concentration - - Weight 69.9 kg (154 lb) 01/23/2025 11:46 AM CDT Height 149.9 cm (4' 11 ) 01/23/2025 11:46 AM CDT Body Mass Index 31.1 01/23/2025 11:46 AM CDT documented in this encounter Progress Notes * Carolina Alanis, HOT[employer]AK[employer] ATTENDANT - 01/23/2025 12:02 PM CDT Patient's identity confirmed yes Patient gave verbal consent to have these services billed to their insurance and expressed understanding that co-insurance and deductible may apply: yes Patient was located at home. This encounter was completed via two-way synchronous audio and video communication. Chief Complaint Patient presents with Follow Up Pain History of Present Illness The patient is a 49-year-old female who presents for a video visit due to pain. She expresses frustration with her surgeon, who did not examine her incision or remove her neck brace during a 2-week postoperative checkup. He prescribed a steroid pack to manage swelling. Her pain has been escalating daily, leading to decreased neck mobility and muscle weakness, reminiscent of her pre-surgery state.She experiences a burning sensation in the back of her neck when she relies on her neck muscles without resting. She has been adhering to her surgeon's instructions regarding the use of a hard neck brace but has noticed a gradual decrease in mobility and increased muscle weakness upon waking. During her last visit, she reported a loss of sensation in her right arm, which was attributed to inflammation and treated with another steroid pack. While this sensation has resolved, she now feels that her neck lacks strength. She was informed that full recovery from her surgery could take up to a year, but she should expect improved mobility within 6 to 8 weeks. However, as she approaches the 6-weekmark post-surgery, she reports more pain than before the procedure. She has been attempting to contact her surgeon's office but has not received a response. Despite taking [place] and meloxicam, she finds no relief from her pain. She has tried various methods to alleviate the pain, including heat application and rest, but nothing seems to work. She has requested additional pain medication from her surgeon as she has exhausted her supply and continues to experience severe pain. She was given 30 tablets of Buffalo on the day of her surgery, 01/02/2025, and has about 4 or 5 left. She has been using them sparingly, only when absolutely necessary. 10 point review of systems is otherwise [...] BREAST LUMPECTOMY FOR CANCER 2011 HX COLECTOMY 2010 Done in [place] HX CORE NEEDLE BREAST BIOPSY 2011 HX EXCISION / BIOPSY BREAST / NIPPLE / DUCT 2011 HX HYSTERECTOMY 2011 HX VAGINOPLASTY 2009 [place] BRONCHOSCOPY W/TRANSBRONCHIAL LUNG BX 1 LOBE N/A 10/05/2024 BRONCHOSCOPY performed by Celia Elkins MD at [facility] Past social, family, and medical history reviewed. Ht 4' 11 (1.499 m) Wt 69.9 kg (154 lb) BMI 31.10 kg/m?? Due to video visit limited vital signs and physical exam obtained. Physical Exam Physical Exam Constitutional: Appearance: Normal appearance. Pulmonary: Effort: Pulmonary effort is normal. Neurological: Mental Status: She is alert. Psychiatric: Mood and Affect: Mood normal. Assessment & Plan 1. Postoperative pain: - Worsening pain and decreased mobility in the neck are reported following surgery, with a burning sensation in the back of the neck and weakness in neck muscles. - The patient has been compliant with her surgeon's instructions, including wearing a neck brace and taking prescribed medications. - Buffalo and meloxicam are prescribed for pain management, and the patient is advised to continue using the neck brace as needed for support. She request I contact Dr. Cifuentes's office for guidance on what she can do for pain control. Will attempt to contact them. Advised her to continue to try and contact his office. Follow-up: Follow up with the surgeon in 4 weeks as scheduled. ROSENDO Valle The author of this note, patient (or authorized patient intake representative), and all other persons present consent to the audio recording of this visit for charting documentation purposes. This note was automatically generated, edited by a Quality Keno Writer, and finalized by ANNMARIE Valle. documented in this encounter Plan of Treatment Not on file documented as of this encounter Visit Diagnoses Diagnosis S/P spinal surgery- Primary Other postprocedural status documented in this encounter Care Teams Floor Tiling Professional Relationship Specialty Start Date End Date Tvoa Charles DO [address] [place] [address] PCP - General Family Practice 05/31/24 documented as of this encounter
--- OUTSIDE RECORDS SUMMARY | 2025-01-29 11:56 | XMS_ITS | Clinical Summary ---
Author Organization [facility] Mono broderick [place] Address [address] [place] [address] Phone Care Team Providers Care Fire Operations Forester Name Role Phone MelvinTova adams Primary Care Provider [phone] Allergies Active Allergy Reactions Criticality Noted Date [...] hours 30 Tablet 2 08/24/19 25 Active topiramate (Topamax) 50 mg tabletIndicati [...] 6 hours as needed. 01/03/20 25 Active omeprazole (PriLOSEC) 40 mg Capsule, Delayed Release(E.C.) Take 1 capsule by mouth once daily 30 Capsule 01/19/20 25 Active omeprazole (PriLOSEC) 40 mg Capsule, Delayed Release(E.C.) Take 1 Capsule (40 mg) by mouth daily. 30 Capsule 3 10/03/19 25 2024 Discontinued Active Problems Problem Noted Date Diagnosed Date Hemoptysis 10/05/2024 Nodule of upper lobe of left lung 06/04/2024 Overview (06/04/2024): Dx by CT chest without contrast on 10/13/2023. Cervical spondylosis 06/04/2024 Cerebellar tonsillar ectopia 06/04/2024 Overview (06/04/2024): Dx on 10/12/2023 at [facility] , 5 mm size Arnold-Chiari malformation 06/04/2024 Prediabetes 06/01/2024 Encounters Date Type Department Care Team Description 01/23/2025 12:00 PM CDT Video Visit [facility] [address] [place] [address] Figueroa, August, COLLEGE OR UNIVERSITY BUSINESS MANAGER S/P spinal surgery (Primary Dx) 01/18/2025 Refill [facility] N[facility] Th[facility] [address] [place] [address] [place] [address] Anselmo Coelho DO 01/08/2025 Orders Only [facility] Information [facility] [place] [address] [place] [address] Provider, Abstract 01/04/2025 10:00 AM CDT Video Visit [facility] [address] [place] [address] Figueroaaugust, COLLEGE OR UNIVERSITY BUSINESS MANAGER S/P spinal surgery (Primary Dx) 12/27/2024 Refill [facility] [address] [place] [address] FigueroaAugust, COLLEGE OR UNIVERSITY BUSINESS MANAGER Nausea 12/26/2024 Refill [facility] [address] [place] [address] Figueroa, August, COLLEGE OR UNIVERSITY BUSINESS MANAGER Situational mixed anxiety and depressive disorder; Chronic neck pain 12/25/2024 External Device Data [facility] ABSTRACTION Provider, Abstract 12/20/2024 Orders Only [facility] [address] [place] [address] Figueroa, August, COLLEGE OR UNIVERSITY BUSINESS MANAGER Foraminal stenosis of cervical region (Primary Dx) 12/05/2024 External Device Data [facility] ABSTRACTION Provider, Abstract 12/04/2024 External Device Data [facility] ABSTRACTION Provider, Abstract 11/22/2024 1:00 PM CDT Office Visit [facility] Neurosurgery [address] [place] [address] [place] [address] Violeta Young NP Arnold-Chiari malformation (CMS/HCC) (Primary Dx); Frequent headaches; Neck pain; Cervical stenosis of spine 11/20/2024 Orders Only [facility] [address] [place] [address] FigueroaAugust, COLLEGE OR UNIVERSITY BUSINESS MANAGER 11/20/2024 Orders Only [facility] Neurosurgery [address] [place] [address] [place] [address] Provider, Abstract 11/13/2024 Orders Only [facility] [address] [place] [address] Provider, Abstract 11/11/2024 Results Follow-Up [facility] [address] [place] [id number] August, COLLEGE OR UNIVERSITY BUSINESS MANAGER COMPREHENSIVE METABOLIC PANEL, CBC WITH DIFFERENTIAL, QUEST TEST IN QUESTION (ACTION NEEDED) (NO MY CHART) 11/09/2024 2:00 PM CDT Office Visit [facility] [address] [place] [phone] August, COLLEGE OR UNIVERSITY BUSINESS MANAGER S/P laparoscopic appendectomy (Primary Dx) 11/07/2024 Orders Only [facility] [address] [place] [address] Provider, Abstract 11/06/2024 2:00 PM CDT Video Visit [facility] [address] [place] [phone] August, COLLEGE OR UNIVERSITY BUSINESS MANAGER Situational mixed anxiety and depressive disorder (Primary Dx); Nausea; Abdominal bloating with cramps; Chronic neck pain 11/06/2024 External Device Data [facility] ABSTRACTION Provider, Abstract 11/02/2024 Orders Only [facility] [address] [place] [phone] August, COLLEGE OR UNIVERSITY BUSINESS MANAGER Chronic neck pain (Primary Dx) 10/31/2024 3:00 PM CDT Video Visit [facility] [address] [place] [phone] August, COLLEGE OR UNIVERSITY BUSINESS MANAGER Migraine without aura and without status migrainosus, not intractable (Primary Dx); Chronic neck pain; Chronic joint pain; Anxiety from Last 3 Months Family History Medical [...] Sex Assigned at Female 06/08/2024 6:45 AM ASSEMBLER CHASSIS Legal Sex Female 8:50 AM ASSEMBLER CHASSIS Gender Identity Female 06/08/2024 6:45 AM ASSEMBLER CHASSIS Sexual Orientation Lesbian or Bess 06/08/2024 6: 45 AM ASSEMBLER CHASSIS Last Filed Vital Signs Vital Sign Reading [...] Mass Index 31.1 01/23/2025 11:46 AM CDT Plan of Treatment Health Maintenance [...] Associated Diagnosis Comments COMPREHENSIVE METABOLIC PANEL Routine 01/07/2025 10:14 AM CDT COMPREHENSIVE METABOLIC PANEL Routine 11/12/2024 12:08 PM [...] WO CONTRAST Routine 10/31/2024 4:07 PM CDT MAMMO 3D ZAIN SCREEN BILAT W OR WO CAD Routine 06/08/2024 9:13 AM ASSEMBLER CHASSIS Screening mammogram, encounter for HEMOGLOBIN A1C Routine 05/31/2024 9:16 AM ASSEMBLER CHASSIS Encounter to establish care with new doctor Prediabetes from Last 3 Months or Most Recently Relevant to Health Maintenance Results * COMPREHENSIVE METABOLIC PANEL (01/07/2025 10:14 AM CDT) Only the most recent of4 resultswithin the time period is included. Blood us Abstract Provider CHEMISTRY ORDERABLES Final Res ult * QUEST TEST IN QUESTION (ACTION NEEDED) (NO MY CHART) (11/09/2024 2:39 PM CDT) REPORT/SPECIMEN COMMENT [facility] Comment: Whole blood, unspun or partially spun gel barrier tube was received more than 6 hours since collection. A false elevation of K, Phos and LD as well as a false decrease in glucose may occur due to prolonged contact with red cells. Test Performed at: [facility] [id number] [place] [address] Elian Oates MD 11/09/2024 2:39 PM CDT 11/10/2024 3:16 AM CDT August Figueroa COLLEGE OR UNIVERSITY BUSINESS MANAGER CHEMISTRY ORDERABLES Final Resul t [facility] [phone] [facility] [address] [facility] [place] [address] * (ABNORMAL) CBC WITH DIFFERENTIAL (11/09/2024 2:39 [...] [facility] Comment: Test Performed at: [facility] [id number] [place] [phone] Elian Oates MD Blood 11/09/2024 2:39 PM CDT 11/10/2024 3:16 AM CDT August COLLEGE OR UNIVERSITY BUSINESS MANAGER HEMATOLOGY ORDERABLES Final Resu lt [facility] [phone] [facility] [id number] [place] [phone] * MRI BRAIN WO CONTRAST (10/31/2024 4:10 PM CDT) Anatomical Region Laterality Modality Head Magnetic Resonan ce us Abstract Provider MR ORDERABLES Final Result * MRI CERVICAL WO CONTRAST (10/31/2024 4:07 PM CDT) Anatomical Region Laterality Modality Spine Magnetic Resonan ce us Abstract Provider MR ORDERABLES Final Result * MAMMO 3D ZAIN SCREEN BILAT W OR WO CAD (06/08/2024 9:13 AM ASSEMBLER CHASSIS) Anatomical Region Laterality Modality Breast Bilateral Mammography, Dig ital Radiography Impressions 06/10/2024 8:49 PM ASSEMBLER CHASSIS : No mammographic evidence of malignancy. BI-RADS ASSESSMENT: 1 - Negative RECOMMENDATION: Routine annual screening mammography. Narrative 06/10/2024 8:49 PM ASSEMBLER CHASSIS EXAM: MAMMO SCRN BILAT 3D ZAIN W OR WO CAD INDICATION: Screening COMPARISON: No comparisons are available. BREAST COMPOSITION: There are scattered areas of fibroglandular density. FINDINGS: RIGHT BREAST: There are no suspicious masses, calcifications, or areas of architectural distortion. LEFT BREAST: There are no suspicious masses, calcifications, or areas of architectural distortion. Miranda PACKP MAMMO ORDERABLES Final Res ult * (ABNORMAL) HEMOGLOBIN A1C (05/31/2024 9:16 AM ASSEMBLER CHASSIS) HEMOGLOBIN A1C 5.9(H) <5.7 % of total [...] [facility] Comment: Test Performed at: [facility] [address] [phone] Elian Oates MD Blood 05/31/2024 9:16 AM ASSEMBLER CHASSIS 06/01/2024 4:56 AM ASSEMBLER CHASSIS Miranda ANGUIANO CHEMISTRY ORDERABLES Final Result [facility] [phone] [facility] [address] [facility] [place] [phone] from Last 3 Months or Most Recently Relevant to Health Maintenance Insurance [facility] [employer] [place]ICAID [address] [place] [phone] [employer] [place] Advance Directives For more information, please contact: [phone] * Full Code (Latest Code Status on File) Date Activated Date Inactivated Comments 10/05/2024 10:13 AM 10/05/2024 3:36 PM Care Teams Fire Operations Forester Relationship Specialty Start Date End Date Tova Charles DO [address] [place] [address] PCP - General Family Practice 05/31/24
[2025-01-29 11:57] VITALS: BP 109/80; PULSE 112; RESP 16; TEMP 37.2; O2SAT 97; BMI 30.2
--- NOTE | 2025-01-29 12:15 | W.ED.NECK ---
HPI - Neck Pain/Injury General: Chief Complaint: Neck Pain/Injury Stated Complaint: open incision on neck,4 weeks post op,head tilted Time Seen by Provider: 01/29/25 12:13 History of Present Illness: 49-year-old female with a history of fairly recent anterior approach cervical fusion. She presents the emergency room today with concerns that my stitches are coming out . The internal stitches she feels are pushing through the incision site. She has a very small open area just superficial on the far right of her incision site. There are some palpable hard areas along the incision that could be consistent with internal stitches. She also complains that she feels like her head is tilting to the right. She says she has been having to wear her cervical collar more recently. Related Data Home Medications ?Medication ?Instructions ?Recorded ?Confirmed buspirone 15 mg tablet 15 mg PO TID 11/07/24 01/15/25 duloxetine 30 mg capsule,delayed 30 mg PO DAILY 11/07/24 01/15/25 release methocarbamol 500 mg tablet 500 mg PO DAILY 11/07/24 01/15/25 omeprazole 40 mg capsule,delayed 40 mg PO DAILY 11/07/24 01/15/25 release ondansetron 4 mg disintegrating 4 mg PO Q8H PRN Nausea 11/07/24 01/15/25 tablet sumatriptan succinate 25 mg tablet 25 mg PO Q2H PRN Migraine Headache 11/07/24 01/15/25 topiramate 50 mg tablet 50 mg PO BID 11/07/24 01/15/25 meloxicam 15 mg tablet 15 mg PO DAILY 11/12/24 01/15/25 Held on 01/02/25. Instructions: Resume on 01/04/25. Previous Rx's ?Medication ?Instructions ?Recorded tizanidine 4 mg tablet 4 mg PO Q6H PRN muscle spasticity 07/21/24 #20 tabs Bone Growth Stimulator #1 ea 12/19/24 prednisone 20 mg tablet 20 mg PO TID #15 tabs 01/07/25 prednisone 20 mg tablet 20 mg PO DAILY #15 tabs 01/15/25 hydrocodone 5 mg-acetaminophen 325 1 - 2 tab PO .Q4-6H PRN pain 7 01/23/25 mg tablet days #40 tabs Allergies Allergy/AdvReac Type Severity Reaction Status Date / Time amoxicillin (From Augmentin) Allergy made me Verified 01/07/25 12:40 sick clavulanic acid (From Allergy made me Verified 01/07/25 12:40 Augmentin) sick codeine Allergy ADR-Gastrointestinal Verified 01/07/25 12:40 Upset gabapentin Allergy ADR-Gastrointestinal Verified 01/07/25 12:40 Upset Sulfa (Sulfonamide Allergy ALGY-Anaphy Verified 01/07/25 12:40 Antibiotics) laxis Review of Systems Narrative: Constitutional symptoms: Negative except as documented in HPI. Skin symptoms: Negative except as documented in HPI. Eye symptoms: Negative except as documented in HPI. ENMT symptoms: Negative except as documented in HPI. Respiratory symptoms: Negative except as documented in HPI. Cardiovascular symptoms: Negative except as documented in HPI. Gastrointestinal symptoms: Negative except as documented in HPI. Genitourinary symptoms: Negative except as documented in HPI. Musculoskeletal symptoms: Negative except as documented in HPI. Neurologic symptoms: Negative except as documented in HPI. Psychiatric symptoms: Negative except as documented in HPI. Endocrine symptoms: Negative except as documented in HPI. PFSH ED PFSH: Medical History (Updated 01/29/25 @ 12:25 by Harriet Bya MD) Cervical radiculopathy Chiari malformation Surgical History (Updated 01/15/25 @ 14:32 by Pasquale Cifuentes DO) History of laparoscopic appendectomy Hx of cholecystectomy Social History Smoking and tobacco/nicotine status: never used tobacco/nicotine Physical Exam Narrative: EXAM NARRATIVE: General: Alert, no acute distress. Skin: warm and dry Head: Normocephalic Neck: Trachea midline, incision is clean and dry. Intact except for 3 mm area on the far right corner that is open superficially. No signs of infection. No surrounding redness. No warmth. Eye: Extraocular movements are intact. Ears, nose, mouth and throat: Oral mucosa moist Respiratory: Respirations are non-labored Musculoskeletal: Normal ROM Gastrointestinal: Abdomen does not appear distended Neurological: Alert and oriented, No focal neurological deficit observed. Psychiatric: Cooperative, appropriate mood & affect. Course Vital Signs: Vital signs: Vital Signs Temperature 98.9 F 01/29/25 11:57 Pulse Rate 112 H 01/29/25 11:57 Respiratory Rate 16 01/29/25 11:57 Blood Pressure 109/80 01/29/25 11:57 Pulse Oximetry 97 01/29/25 11:57 Oxygen Delivery Me thod Room Air 01/29/25 11:57 MDM - Neck Pain/Injury Medical Decision Making Consultation: I spoke with Dr. Cifuentes who had done surgery on this patient. Described her complaints and he will see her in clinic this afternoon at 1 PM. Assessment and plan: Postoperative pain - Discharged home - Discussed plan with patient. Answered any questions. - Evaluation and treatment of this problem were appropriate in the emergency setting. No radiology studies performed this visit Discharge Plan Discharge Patient Disposition: Home Clinical Impression: Post-operative pain Condition: Stable Prescriptions: No Action prednisone 20 mg tablet 20 mg PO DAILY Qty: 15 0RF Rx Instructions: 60MG for 3 days 40MG for 2 days 20MG for 2 days (DME) Bone Growth Stimulator See Rx Instructions .Route .MEDSUPPLY Qty: 1 0RF Rx Instructions: As directed hydrocodone-acetaminophen 5-325 mg tablet 1 - 2 tab PO .Q4-6H PRN (Reason: pain) 7 Days Qty: 40 0RF meloxicam 15 mg Tablet 15 mg PO DAILY tizanidine 4 mg tablet 4 mg PO Q6H PRN (Reason: muscle spasticity) Qty: 20 0RF Rx Instructions: do not exceed 3 doses per 24 hrs methocarbamol 500 mg Tablet 500 mg PO DAILY sumatriptan succinate 25 mg Tablet 25 mg PO Q2H PRN (Reason: Migraine Headache) Rx Instructions: do not exceed 8 doses per 24 hrs omeprazole 40 mg Capsule,Delayed Release(Dr/Ec) 40 mg PO DAILY ondansetron 4 mg Tablet,Disintegrating 4 mg PO Q8H PRN (Reason: Nausea) buspirone 15 mg Tablet 15 mg PO TID topiramate 50 mg Tablet 50 mg PO BID duloxetine 30 mg Capsule,Delayed Release(Dr/Ec) 30 mg PO DAILY Rx Instructions: Take 30 mg by mouth daily for 1 week, then increase to 60mg daily. prednisone 20 mg tablet 20 mg PO TID Qty: 15 0RF Rx Instructions: 1 p.o. 3 times daily x3 days, 1 p.o. twice daily x2 days, 1 p.o. daily x2 days Discharge Orders: Discharge ED (Routine); Ordered 01/29/25 Ordered By: Harriet Bay Referrals: Pasquale Cifuentes DO [Physician, Orthopedics] - 01/29/25 1:00 pm Referral Note: Please go to Dr. Cifuentes's clinic this afternoon for an appointment. Tova Charles DO [Primary Care Provider, [facility]] Discharge Diet: Usual diet Discharge Activity: Limit activity as instructed Patient Instructions: Opioid Safety, Pain Management, Patient Portal & Jimenez Instructions Print Language: Guamanian Coding Level of Care Code ED Filler Shredder Helper for Candice Meyers
== END 2025-01-29 12:34 | disposition home or self-care (01) ==
PROVIDERS: Emergency Provider Emergency Medicine; PCP Family Medicine
DX: G89.18 Other acute postprocedural pain (principal); Z98.890 Other specified postprocedural states; Z98.1 Arthrodesis status
CPT/HCPCS: 72040; 99281

== ENCOUNTER → 2025-04-04 14:25 | Outpatient (BNVA) | payer MEDICAID, SELFPAY | PROVIDERS: PCP Family Medicine; Visit Provider Orthopaedic Surgery | DX: M47.892 Other spondylosis, cervical region (principal); Z98.1 Arthrodesis status | CPT/HCPCS: 72040 ==

== ENCOUNTER 2025-04-11 16:42 | Outpatient (RCR) | payer MEDICAID, SELFPAY | END 2025-04-21 23:59 | disposition home or self-care (01) | LOC: SPT 16:42 | PROVIDERS: Visit Provider Orthopaedic Surgery | DX: M54.2 Cervicalgia (principal); G89.29 Other chronic pain | CPT/HCPCS: 97161 ==

== ENCOUNTER 2025-04-22 05:00 | Outpatient (RCR) | payer MEDICAID, SELFPAY | END 2025-05-08 09:56 | disposition home or self-care (01) | LOC: SPT 05:00 | PROVIDERS: Visit Provider Orthopaedic Surgery | DX: M54.2 Cervicalgia (principal); G89.29 Other chronic pain | CPT/HCPCS: 97110 ==

== ENCOUNTER → 2025-05-02 13:24 | Outpatient (BNVA) | payer MEDICAID, SELFPAY | PROVIDERS: Visit Provider Orthopaedic Surgery | DX: Z47.89 Encounter for other orthopedic aftercare (principal); Z98.1 Arthrodesis status | CPT/HCPCS: 72040 ==